=== PATIENT | female | born 1950 | race Caucasian/White ===

== ENCOUNTER → 2017-01-25 | Outpatient (CLI) | payer OTHER ==
[~2017-01-25] MED LIST: ASCO1CAP3 PO; ASPI81TA25 PO; ATOR-24 PO; B-CO1CAP17 PO; CALCTAB5 PO; CITA10TA4 PO; CLOP1TAB5 PO; CYAN10004 PO; LISI-791 PO; LPR25 PO; NXM/40 PO
[2017-01-25 16:38] LABS: BASO % 0.4 %; BASO ABS # 0.04 K/uL (0-0.2); COMPLETE YES; EOS % 3.1 %; HEMATOCRIT 37.5 % (37-47); IG% 0.4 %; LYMPH % 35.2 %; LYMPH ABS # 3.62 K/uL (1.2-3.4); MEAN CELL VOLUME 91.2 fL (80-100); MEAN CORPUSCULAR HEMOGLOBIN 30.9 pg (25-34); MEAN CORPUSCULAR HGB CONC 33.9 g/dl (32-36); MEAN PLATELET VOLUME 9.8 fL (7.4-10.4); MONO % 8.6 %; NEUT % 52.3 %; PLATELET COUNT 329 K/uL (130-400); RED BLOOD COUNT 4.11 M/uL (4.2-5.4); WHITE BLOOD COUNT 10.28 K/uL (4.8-10.8)
[2017-01-25 17:06] LABS: ALT/SGPT 38 U/L (12-78); AST/SGOT 25 U/L (15-37); BLOOD UREA NITROGEN 18 mg/dl (7-18); BUN/CREATININE RATIO 28.7 (10-20); CALCIUM 8.7 mg/dl (8.5-10.1); CARBON DIOXIDE 31 mmol/L (21-32); CHLORIDE 106 mmol/L (98-107); CREATININE 0.62 mg/dl (0.60-1.20); GLUCOSE 92 mg/dl (70-99); POTASSIUM 4.2 mmol/L (3.5-5.1); SODIUM 142 mmol/L (136-145)
[2017-01-25 17:08] LABS: ALB/GLOB RATIO 1.1 (0.9-2); ALKALINE PHOSPHATASE 135 U/L (45-117)
== END | disposition home or self-care (01) ==
LOC: C.LAB1850 15:51
PROVIDERS: ATTEND Internal Medicine
DX: I10 Essential (primary) hypertension (principal); Z11.59 Encounter for screening for other viral diseases

== ENCOUNTER → 2017-01-28 | Outpatient (CLI) | payer OTHER | END | disposition home or self-care (01) | LOC: C.LABSPEC 15:27 | PROVIDERS: ATTEND Internal Medicine | DX: Z00.00 Encounter for general adult medical examination without abnormal findings (principal) ==

== ENCOUNTER → 2017-06-30 | Outpatient (CLI) | payer OTHER ==
[2017-06-30 18:04] LABS: HEMATOCRIT 37.2 % (37-47); MEAN CELL VOLUME 92.3 fL (80-100); MEAN CORPUSCULAR HEMOGLOBIN 30.8 pg (25-34); MEAN CORPUSCULAR HGB CONC 33.3 g/dl (32-36); PLATELET COUNT 298 K/uL (130-400); RED BLOOD COUNT 4.03 M/uL (4.2-5.4); WHITE BLOOD COUNT 11.25 K/uL (4.8-10.8)
[2017-06-30 18:13] LABS: ALT/SGPT 36 U/L (12-78); AST/SGOT 27 U/L (15-37); BLOOD UREA NITROGEN 15 mg/dl (7-18); BUN/CREATININE RATIO 22.8 (10-20); CALCIUM 9.1 mg/dl (8.5-10.1); CARBON DIOXIDE 29 mmol/L (21-32); CHLORIDE 105 mmol/L (98-107); CREATININE 0.67 mg/dl (0.60-1.20); GLUCOSE 122 mg/dl (70-99); MAGNESIUM 1.8 mg/dl (1.8-2.4); SODIUM 141 mmol/L (136-145)
[2017-06-30 18:24] LABS: ALB/GLOB RATIO 1.1 (0.9-2); ALKALINE PHOSPHATASE 123 U/L (45-117); THYROID STIMULATING HORMONE 0.712 uIu/ml (0.300-4.500)
== END | disposition home or self-care (01) ==
LOC: C.LAB1850 16:00
PROVIDERS: ATTEND Physician Assistant
DX: R00.2 Palpitations (principal)

== ENCOUNTER → 2017-08-16 | Outpatient (CLI) | payer OTHER ==
--- NOTE | 2017-08-17 14:32 | MAMMOGRAPHY REPORT ---
BILATERAL DIGITAL SCREENING MAMMOGRAM TOMOSYNTHESIS WITH CAD: 08/16/2017 CLINICAL HISTORY: Routine screening. Patient has no complaints. TECHNIQUE: Breast tomosynthesis in addition to standard 2D mammography was performed. Current study was also evaluated with a Computer Aided Detection (CAD) system. COMPARISON: Comparison is made to exams dated: 08/14/2016 mammogram, 08/12/2015 mammogram, 4 mammogram, 08/08/2013 mammogram - [facility], 08/06/2003 mammogram, and 2 mammogram - [facility]. BREAST COMPOSITION: There are scattered areas of fibroglandular density in both breasts. FINDINGS: No suspicious masses, calcifications, or areas of architectural distortion are noted in ei ther breast. There has been no significant interval change compared to prior exams. Bilateral nodula rity and scattered bilateral benign-appearing calcifications are not significantly changed. IMPRESSION: ACR BI-RADS CATEGORY 2: BENIGN There is no mammographic evidence of malignancy. A 1 year screening mammogram is recommended. The pa tient will receive written notification of the results. Approximately 10% of breast cancers are not detected with mammography. A negative mammographic report should not delay biopsy if a clinically suggestive mass is present. Adali Burks M.D. ah/:08/16/2017 15:34:36 Supply Requirements Officer: Lucy HARRIS)([place]), [facility] letter sent: Normal 1/2 BI-RADS Code: ACR BI-RADS Category 2: Benign
== END | disposition home or self-care (01) ==
LOC: C.MAMM 14:41
PROVIDERS: ATTEND Internal Medicine
DX: Z12.31 Encounter for screening mammogram for malignant neoplasm of breast (principal)

== ENCOUNTER → 2017-09-13 | Outpatient (CLI) | payer OTHER ==
[~2017-09-13] MED LIST changes: +ATOR-26 PO; +CALCTAB7 PO; +CIPR-255 PO; +CLX/20 PO; +LSN20 PO; +METO25TA56 PO; +PANT20TA2 PO; +PLV75 PO; +SACC250C3 PO
[2017-09-13 15:43] LABS: BASO % 0.5 %; BASO ABS # 0.05 K/uL (0-0.2); COMPLETE YES; EOS % 2.9 %; HEMATOCRIT 39.6 % (37-47); IG% 0.3 %; LYMPH % 41.2 %; LYMPH ABS # 4.39 K/uL (1.2-3.4); MEAN CELL VOLUME 91.5 fL (80-100); MEAN CORPUSCULAR HEMOGLOBIN 32.1 pg (25-34); MEAN CORPUSCULAR HGB CONC 35.1 g/dl (32-36); MEAN PLATELET VOLUME 9.9 fL (7.4-10.4); MONO % 7.5 %; NEUT % 47.6 %; PLATELET COUNT 300 K/uL (130-400); RED BLOOD COUNT 4.33 M/uL (4.2-5.4); WHITE BLOOD COUNT 10.65 K/uL (4.8-10.8)
== END | disposition home or self-care (01) ==
LOC: C.LAB1850 14:31
PROVIDERS: ATTEND Internal Medicine
DX: D72.829 Elevated white blood cell count, unspecified (principal)

== ENCOUNTER 2017-09-15 20:20 | Emergency (ER) | payer OTHER ==
[~2017-09-15] VITALS: Ht 152.4 cm; Wt 69.7 kg
[~2017-09-15 20:20] MED LIST changes: -ATOR-26 PO; -CALCTAB7 PO; -CIPR-255 PO; -CLX/20 PO; -LSN20 PO; -METO25TA56 PO; -PANT20TA2 PO; -PLV75 PO; -SACC250C3 PO
[2017-09-15 20:28] VITALS: Ht 152.4 cm; Wt 69.7 kg
[2017-09-15] MEDS ORDERED: SODIUM CHLORIDE 0.9% 1000ML 1,000 ML IV STA (20:42)
[2017-09-15] MEDS ORDERED: KETOROLAC TROMETHAMINE 30 MG/ML VIAL IV STA (20:42)
[2017-09-15] MEDS ORDERED: FENTANYL CITRATE INJ 50 MCG/1 ML 2 ML VIAL IV STA (20:42)
[2017-09-15] MEDS ORDERED: ONDANSETRON INJ 2 MG/ML 2 ML VIAL IV STA (20:42)
--- NOTE | 2017-09-15 20:50 | EMERGENCY ROOM VISIT NOTE ---
History Report prepared by Annalisa: Braxton Arce Under the Supervision of: Dr. Juanjose Pulido M.D. First contact with patient: 20:37 Chief Complaint: HIP PAIN Stated Complaint: LT HIP PAIN History of Present Illness The patient is a 67 year old female who presents to the Emergency Room with complaints of sudden sharp left hip pain that began 2 hours ago. This has never happened to her before. She denies any history of kidney stones. She rates her pain a 9/10 in severity. When her pain began, she began to feel very nauseated and vomited her dinner. She is currently still nauseated. She denies any known urinary symptoms. She notes that she tried a topical analgesic but it did not relieve her pain. her pain does not radiate anywhere. She has a past medical history of a cardiac stent, hypertension, and hyperlipidemia. She denies any fevers, chills, cough, chest pain, shortness of breath, abdominal pain, weakness , or numbness. Source of History: patient Onset: 2 hours ago Position: other (left hip) Symptom Intensity: 9/10 Quality: sharp Timing: other (sudden onset) Associated Symptoms: + nausea, + vomiting, No fevers, No chills, No chest pain, No SOB, No abdominal pain, No urinary symptoms, No weakness, No numbness Review of Systems See HPI for pertinent positives and negatives. A total of ten systems were reviewed and were otherwise negative. Past Medical & Surgical Medical Problems: (1) Cardiovascular stress testing Family History Diabetes mellitus FH: cancer FH: heart disease Hypertension Social History Smoking Status: Never Smoker Marital Status: Occupation Status: unemployed Current/Historical Medications Scheduled Ascorbic Acid (Vitamin C), 500 MG PO DAILY Aspirin (Aspir-Low), 81 MG PO QAM Atorvastatin (Lipitor), 80 MG PO DAILY Calcium Carbonate-Vitamin D W/ (Caltrate 600 Plus), 1 TAB PO DAILY Ciprofloxacin Hcl (Cipro), 500 MG PO BID Citalopram (Citalopram Hydrobromide), 20 MG PO DAILY Clopidogrel Bisulfate (Clopidogrel), 75 MG PO DAILY Cyanocobalamin (Vitamin B-12 1000 Mcg), 1,000 MCG PO DAILY Lisinopril (Lisinopril), 20 MG PO BID Metoprolol Tartrate (Lopressor) (Lopressor), 25 MG PO BID Pantoprazole Sodium (Protonix), 20 MG PO Q2D Saccharomyces Boulardii (Florastor), 1 CAP PO BID Vitamin B Cmplx/Vitc/Folic Ac (Nephrocaps), 1 CAP PO QAM Allergies Coded Allergies: No Known Allergies (Unverified , 08/20/15) Physical Exam Vital Signs Date Time Temp Pulse Resp B/P (MAP) Pulse Ox O2 Delivery O2 Flow Rate FiO2 09/15/17 22:57 36.3 68 18 138/55 99 09/15/17 20:28 36.3 60 18 157/85 98 Room Air Physical Exam GENERAL: Awake, alert, uncomfortable-appearing, in no distress HENT: Normocephalic, atraumatic. Oropharynx unremarkable. EYES: Normal conjunctiva. Sclera non-icteric. NECK: Supple. No nuchal rigidity. FROM. No JVD. RESPIRATORY: Clear to auscultation. CARDIAC: Regular rate, normal rhythm. Extremities warm and well perfused. Pulses equal. ABDOMEN: Soft, non-distended. No tenderness to palpation. No rebound or guarding. No masses. RECTAL: Deferred. MUSCULOSKELETAL: Chest examination reveals no tenderness. The back is symmetrical on inspection without obvious abnormality. Mild left CVA and left flank tenderness. No peritoneal signs. No joint edema. LOWER EXTREMITIES: Calves are equal size bilaterally and non-tender. No edema. No discoloration. NEURO: Normal sensorium. No sensory or motor deficits noted. SKIN: No rash or jaundice noted. Medical Decision & Procedures ER Provider Diagnostic Interpretation: Radiology results as stated below per my review and radiologist interpretation: ABD/PELVIS IV CONTRAST ONLY CLINICAL HISTORY: 67 years-old Female presenting with LEFT FLANK PAIN. TECHNIQUE: Multidetector CT of the abdomen and pelvis was performed after the administration of intravenous contrast. IV contrast: None. A dose lowering technique was used consistent with the principles of ALARA (as low as reasonably achievable). COMPARISON: None. CT DOSE (mGy.cm): The estimated cumulative dose is 505.54 mGy.cm. FINDINGS: Quality Control Director topogram: Unremarkable. Lung bases: Minimal basilar opacities. No pleural effusion or pneumothorax. Coronary artery calcification. Normal heart size. No pericardial or pleural effusion. Liver: Normal morphology. No liver lesion. Patent hepatic vasculature. Biliary: Mild intrahepatic bladder ductal dilatation in segments 8 suggested without an obstructing central mass apparent. No extrahepatic biliary ductal dilatation. Gallbladder decompressed. Pancreas: Mild parenchymal atrophy. Spleen: Normal. Adrenal glands: Normal. Kidneys and ureters: Normal. No hydronephrosis. Bladder: Normal. Pelvic organs: Uterus surgically absent. No adnexal masses. Bowel: Normal. No bowel obstruction. Peritoneal cavity: No free fluid or intraperitoneal gas. Lymph nodes: No enlarged lymph nodes in the abdomen or pelvis. Vasculature: Atherosclerosis of the normal caliber abdominal aorta. IVC patent. Abdominal wall: Normal. Musculoskeletal: Normal. IMPRESSION: 1. No acute intra-abdominal pathology. Electronically signed by: Jung Gonzalez M.D. 09/15/2017 10:11 PM Dictated Date/Time: 09/15/2017 10:06 PM Laboratory Results 09/15/17 21:06 Red Blood Count 4.13, Mean Corpuscular Volume 90.1, Mean Corpuscular Hemoglobin 32.0, Mean Corpuscular Hemoglobin Concent 35.5, Mean Platelet Volume 9.7, Neutrophils (%) (Auto) 70.8, Lymphocytes (%) (Auto) 19.8, Monocytes (%) (Auto) 6.8, Eosinophils (%) (Auto) 1.9, Basophils (%) (Auto) 0.5, Neutrophils # (Auto) 9.92, Lymphocytes # (Auto) 2.78, Monocytes # (Auto) 0.95, Eosinophils # (Auto) 0.26, Basophils # (Auto) 0.07 09/15/17 21:06 Test 09/15/17 21:06 09/15/17 21:13 White Blood Count 14.01 K/uL (4.8-10.8) Red Blood Count 4.13 M/uL (4.2-5.4) Hemoglobin 13.2 g/dL (12.0-16.0) Hematocrit 37.2 % (37-47) Mean Corpuscular Volume 90.1 fL (80-100) Mean Corpuscular Hemoglobin 32.0 pg (25-34) Mean Corpuscular Hemoglobin Concent 35.5 g/dl (32-36) Platelet Count 281 K/uL (130-400) Mean Platelet Volume 9.7 fL (7.4-10.4) Neutrophils (%) (Auto) 70.8 % Lymphocytes (%) (Auto) 19.8 % Monocytes (%) (Auto) 6.8 % Eosinophils (%) (Auto) 1.9 % Basophils (%) (Auto) 0.5 % Neutrophils # (Auto) 9.92 K/uL (1.4-6.5) Lymphocytes # (Auto) 2.78 K/uL (1.2-3.4) Monocytes # (Auto) 0.95 K/uL (0.11-0.59) Eosinophils # (Auto) 0.26 K/uL (0-0.5) Basophils # (Auto) 0.07 K/uL (0-0.2) RDW Standard Deviation 40.8 fL (36.4-46.3) RDW Coefficient of Variation 12.5 % (11.5-14.5) Immature Granulocyte % (Auto) 0.2 % Immature Granulocyte # (Auto) 0.03 K/uL (0.00-0.02) Anion Gap 4.0 mmol/L (3-11) Est Creatinine Clear Calc Drug Dose 62.6 ml/min Estimated GFR () 94.1 Estimated GFR (Non- 81.2 BUN/Creatinine Ratio 25.8 (10-20) Calcium Level 9.2 mg/dl (8.5-10.1) Total Bilirubin 0.5 mg/dl (0.2-1) Direct Bilirubin 0.1 mg/dl (0-0.2) Aspartate Amino Transf (AST/SGOT) 26 U/L (15-37) Alanine Aminotransferase (ALT/SGPT) 31 U/L (12-78) Alkaline Phosphatase 122 U/L (45-117) Total Protein 7.2 gm/dl (6.4-8.2) Albumin 3.9 gm/dl (3.4-5.0) Lipase 98 U/L (73-393) Urine Color YELLOW Urine Appearance TURBID (CLEAR) Urine pH >= 9.0 (4.5-7.5) Urine Specific [place] 1.020 (1.000-1.030) Urine Protein NEG (NEG) Urine Glucose (UA) NEG (NEG) Urine Ketones NEG (NEG) Urine Occult Blood NEG (NEG) Urine Nitrite NEG (NEG) Urine Bilirubin NEG (NEG) Urine Urobilinogen NEG (NEG) Urine Leukocyte Esterase SMALL (NEG) Urine WBC (Auto) 5-10 /hpf (0-5) Urine RBC (Auto) 0-4 /hpf (0-4) Urine Hyaline Casts (Auto) 5-10 /lpf (0-5) Urine Epithelial Cells (Auto) >30 /lpf (0-5) Urine Bacteria (Auto) NEG (NEG) Urine Renal Epithelial Cells /lpf (0-5) Urine Crystals AMORPHOUS SEDIMENT (NONE Laboratory results reviewed by me Medications Administered Medications (Trade) Dose Ordered Sig/Jasvir Route Start Time Stop Time Status Last Admin Dose Admin Sodium Chloride 1,000 ml @ 999 mls/hr Q1H1M STAT IV 09/15/17 20:42 09/15/17 21:42 DC 09/15/17 21:16 999 MLS/HR Ketorolac Tromethamine (Toradol Inj) 15 mg NOW STAT IV 09/15/17 20:42 09/15/17 20:47 DC 09/15/17 21:16 15 MG Ondansetron HCl (Zofran Inj) 4 mg NOW STAT IV 09/15/17 20:42 09/15/17 20:47 DC 09/15/17 21:15 4 MG Fentanyl Citrate (Fentanyl Inj) 50 mcg NOW STAT IV 09/15/17 20:42 09/15/17 20:47 DC 09/15/17 21:16 50 MCG Ciprofloxacin (Cipro Tab) 500 mg NOW STAT PO 09/15/17 22:39 09/15/17 22:43 DC 09/15/17 22:53 500 MG ED Course 2036: The patient was evaluated in room B4. A complete history and physical exam was performed. 2249: I reevaluated the patient. Discussed results and discharge instructions: She verbalized understanding and agreement. The patient is ready for discharge. Medical Decision I reviewed the patient's past medical history, medications, and the nursing notes as described above. Differential diagnosis includes but is not limited to: ureteral stone, UTI, pyelonephritis, lumbosacral radiculopathy or strain. The patient is a 67 y/o woman with presents to the ED with acute onset left flank pain per HPI. On arrival the patient is uncomfortable but in NAD. AFVSS. Mild left CVA/flank ttp. UA+ for UTI. Patient reports frequency but no dysuria. WBC elevated to 14. Labs otherwise unremarkable. CT negative for ureteral stone or acute findings otherwise. Will treat for pyelo given patient's flank pain. Patient feeling improved after IVF hydration and analgesia. Findings and plan for follow-up reviewed with patient. Patient agreeable and d/c'd per discharge instructions. Medication Reconcilliation Current Medication List: was personally reviewed by me Blood Pressure Screening Patient's blood pressure: Elevated blood pressure Blood pressure disposition: Elevated BP felt to be situational Impression Primary Impression: Pyelonephritis Scribe Attestation The scribe's documentation has been prepared under my direction and personally reviewed by me in its entirety. I confirm that the note above accurately reflects all work, treatment, procedures, and medical decision making performed by me. Departure Information Dispostion Home / Self-Care Prescriptions Saccharomyces Boulardii (Florastor) 250 Mg Cap 1 CAP PO BID for 10 Days, #20 CAP Prov: Juanjose Pulido M.D. 09/15/17 Ciprofloxacin Hcl (CIPRO) 500 Mg Tab 500 MG PO BID, #14 TAB Prov: Juanjose Pulido M.D. 09/15/17 Referrals RV. Crook MD (PCP) Forms HOME CARE DOCUMENTATION FORM, IMPORTANT VISIT INFORMATION, WORK / SCHOOL INSTRUCTIONS Patient Instructions ED UTI Cystitis Female, My [facility], Pyelonephritis Dc Additional Instructions Please follow up with your primary care physician in the next 1-3 days for re- evaluation. You likely have urinary tract infection that may involve your kidney. Otherwise, your exam, CT scan, and lab results did not show signs of an emergent condition at this time. Ciprofloxacin as directed. Florastor, probiotic, to help minimize risk of antibiotic associated diarrhea. Acetaminophen or ibuprofen for pain as needed. Return to the emergency department for worsening symptoms as described in the accompanying instructions.
[2017-09-15] MEDS ORDERED: LSN20 PO (20:53)
[2017-09-15] MEDS ORDERED: ATOR-26 PO (20:53)
[2017-09-15] MEDS ORDERED: PANT20TA2 PO (20:53)
[2017-09-15] MEDS ORDERED: CALCTAB7 PO (20:53)
[2017-09-15] MEDS ORDERED: CLX/20 PO (20:53)
[2017-09-15] MEDS ORDERED: PLV75 PO (20:53)
[2017-09-15] MEDS ORDERED: METO25TA56 PO (20:53)
[2017-09-15] MEDS ORDERED: OPTIRAY 320 IV PRN (21:00)
[2017-09-15 21:19] LABS: BASO % 0.5 %; BASO ABS # 0.07 K/uL (0-0.2); COMPLETE YES; EOS % 1.9 %; HEMATOCRIT 37.2 % (37-47); IG% 0.2 %; LYMPH % 19.8 %; LYMPH ABS # 2.78 K/uL (1.2-3.4); MEAN CELL VOLUME 90.1 fL (80-100); MEAN CORPUSCULAR HGB CONC 35.5 g/dl (32-36); MEAN PLATELET VOLUME 9.7 fL (7.4-10.4); MONO % 6.8 %; NEUT % 70.8 %; PLATELET COUNT 281 K/uL (130-400); RED BLOOD COUNT 4.13 M/uL (4.2-5.4); WHITE BLOOD COUNT 14.01 K/uL (4.8-10.8)
[2017-09-15 21:38] LABS: URINE APPEARANCE TURBID (CLEAR); URINE BILIRUBIN NEG (NEG); URINE COLOR YELLOW; URINE EPITHELIAL CELL AUTO >30 /lpf (0-5); URINE NITRITE NEG (NEG); URINE PH >= 9.0 (4.5-7.5); UROBILINOGEN NEG (NEG); ZZUR CULT IF INDIC CLEAN CATCH NO
[2017-09-15 21:38] LABS: BUN/CREATININE RATIO 25.8 (10-20); CALCIUM 9.2 mg/dl (8.5-10.1); CREATININE 0.76 mg/dl (0.60-1.20); POTASSIUM 3.6 mmol/L (3.5-5.1)
[2017-09-15 21:54] LABS: MANUAL MICROSCOPIC REQUIRED? NO; REVIEW REQ? YES
--- NOTE | 2017-09-15 22:13 | DIAGNOSTIC IMAGING REPORT ---
ABD/PELVIS IV CONTRAST ONLY CLINICAL HISTORY: 67 years-old Female presenting with LEFT FLANK PAIN. TECHNIQUE: Multidetector CT of the abdomen and pelvis was performed after the administration of intravenous contrast. IV contrast: None. A dose lowering technique was used consistent with the principles of ALARA (as low as reasonably achievable). COMPARISON: None. CT DOSE (mGy.cm): The estimated cumulative dose is 505.54 mGy.cm. FINDINGS: Pantry Chef topogram: Unremarkable. Lung bases: Minimal basilar opacities. No pleural effusion or pneumothorax. Coronary artery calcification. Normal heart size. No pericardial or pleural effusion. Liver: Normal morphology. No liver lesion. Patent hepatic vasculature. Biliary: Mild intrahepatic bladder ductal dilatation in segments 8 suggested without an obstructing central mass apparent. No extrahepatic biliary ductal dilatation. Gallbladder decompressed. Pancreas: Mild parenchymal atrophy. Spleen: Normal. Adrenal glands: Normal. Kidneys and ureters: Normal. No hydronephrosis. Bladder: Normal. Pelvic organs: Uterus surgically absent. No adnexal masses. Bowel: Normal. No bowel obstruction. Peritoneal cavity: No free fluid or intraperitoneal gas. Lymph nodes: No enlarged lymph nodes in the abdomen or pelvis. Vasculature: Atherosclerosis of the normal caliber abdominal aorta. IVC patent. Abdominal wall: Normal. Musculoskeletal: Normal. IMPRESSION: 1. No acute intra-abdominal pathology. Electronically signed by: Jung Gonzalez M.D. 09/15/2017 10:11 PM Dictated Date/Time: 09/15/2017 10:06 PM
[2017-09-15] MEDS ORDERED: CIPROFLOXACIN 500 MG TAB PO STA (22:39)
[2017-09-15] MEDS ORDERED: CIPR-255 PO (22:44)
[2017-09-15] MEDS ORDERED: SACC250C3 PO (22:44)
[2017-09-15 22:57] VITALS: BP 138/55; PULSE 68; TEMP 36.3; O2SAT 99
== END 2017-09-15 22:59 | disposition home or self-care (01) ==
LOC: C.EDB 20:21
DX: N12 Tubulo-interstitial nephritis, not specified as acute or chronic (principal); I10 Essential (primary) hypertension; E78.5 Hyperlipidemia, unspecified; Z95.5 Presence of coronary angioplasty implant and graft; Z79.82 Long term (current) use of aspirin; Z83.3 Family history of diabetes mellitus; Z82.49 Family history of ischemic heart disease and other diseases of the circulatory system

== ENCOUNTER 2017-10-07 06:22 | Day surgery (SDC) | payer OTHER ==
[~2017-10-07] VITALS: Ht 162.6 cm; Wt 63.5 kg
[~2017-10-07 06:22] MED LIST changes: -ATOR-24 PO; +ATOR-26 PO; -CALCTAB5 PO; +CALCTAB7 PO; +CIPR-255 PO; -CITA10TA4 PO; -CLOP1TAB5 PO; +CLX/20 PO; -LISI-791 PO; -LPR25 PO; +LSN20 PO; +METO25TA56 PO; -NXM/40 PO; +PANT20TA2 PO; +PLV75 PO
[2017-10-07 06:46] VITALS: Ht 162.6 cm; Wt 63.5 kg
[2017-10-07 06:50] VITALS: BP 152/98; PULSE 57; TEMP 36.7; O2SAT 98
[2017-10-07] MEDS ORDERED: CEFAZOLIN SOD 2000MG/10 ML IV PUSH IV ONE (07:07)
--- NOTE | 2017-10-07 07:53 | History & Physical Bridge Note ---
H&P Re-Evaluation Bridge Note: I have examined the patient, reviewed the History & Physical and in the interval since the performance of the History & Physical I have noted the following changes of clinical significance: No changes noted. I discussed the indications, procedure, risks and alternatives of loop recorder implantation with her and her and they understand and she agrees to proceed. Consent obtained. I discussed options of sedation with her and she prefers no sedation.
[2017-10-07] MEDS ORDERED: LIDOCAINE HCL 1% 20 ML VIAL ONE (08:01)
[2017-10-07] MEDS ORDERED: BACITRACIN OINT 0.9 GM PKT ONE (08:18)
[2017-10-07 08:20] VITALS: BP 139/61; PULSE 51; TEMP 36.7; O2SAT 95
--- NOTE | 2017-10-07 08:24 | [facility] Operative Report ---
Operative Report Operative Date Oct 07, 2017. Pre-Operative Diagnosis Palpitations, tachycardia Post-Operative Diagnosis same Procedure(s) Performed Loop recorder implantation Surgeon Dr. Early Equipment Service Associate Surgeon(s) none Estimated Blood Loss 2 cc Findings Good position Specimens None Anesthesia local, no sedation Complication(s) None Disposition MTU Description of Procedure After obtaining informed consent for the procedure, the patient was brought to the laboratory having had nothing by mouth after midnight. The patient was prepped and draped in the standard sterile manner for a loop recorder implantation. An area at the fourth left intercostal space and 1 cm left of the left sternal border was infiltrated with 1% lidocaine local anesthetic and a 0.5 cm incision was made through the skin. Using the loop recorder insertion tool the loop recorder was inserted through the incision at a 45 downward and leftward angle. The incision was closed with a subcutaneous continuous closure of 4-0 Vicryl followed by a running subcuticular skin closure of 4-0 Vicryl. Steri- Strips were applied and bacitracin ointment was placed on the incision. A dressing was applied. I attest to the content of the Intraoperative Record and any orders documented therein. Any exceptions are noted below.
[2017-10-07] MEDS ORDERED: ACETAMINOPHEN 325 MG TAB PO PRN (08:30)
--- NOTE | 2017-10-07 08:31 | Discharge Instructions ---
Discharge Instructions Date of Service Oct 07, 2017. Admission Reason for Admission: Palpitations Discharge Discharge Diagnosis / Problem: Loop recorder implantation Discharge Goals Goal(s): Diagnostic testing Activity Recommendations Activity Limitations: resume your previous activity . Instructions / Follow-Up Instructions / Follow-Up ACTIVITY RECOMMENDATIONS: * Do not raise affected arm over head for 2 weeks. SPECIAL CARE INSTRUCTIONS: * If bleeding occurs, apply direct pressure to area for 5 minutes. * Call your doctor if you have severe pain, fever, drainage or bleeding at site. * Keep dressing on and dry. * Keep any scheduled doctor's appointment. * Implant Card - hand held device with website information given. SKIN IRRITATION: * You may experience some redness and/or swelling in the area where radiation was administered. If any skin irritation occurs, please contact your family physician. FOLLOW UP VISIT: Dr. Early 10/08/2017 10:30 AM Current Hospital Diet Patient's current hospital diet: AHA Diet (Heart Healthy) Discharge Diet Recommended Diet: AHA Diet (Heart Healthy) Pending Studies Studies pending at discharge: no Medical Emergencies . Who to Call and When: Medical Emergencies: If at any time you feel your situation is an emergency, please call 911 immediately. . Non-Emergent Contact Non-Emergency issues call your: Primary Care Provider . . "Provider Documentation" section prepared by Eliazar Early. . VTE Core Measure Inpt VTE Proph given/why not?: Treatment not indicated
[2017-10-07 09:04] VITALS: BP 133/56; PULSE 50; TEMP 36.7; O2SAT 95
== END 2017-10-07 09:05 | disposition home or self-care (01) ==
LOC: C.ACU 06:22
PROVIDERS: ATTEND Internal Medicine Cardiovascular Disease
DX: R00.2 Palpitations (principal); R00.0 Tachycardia, unspecified

== ENCOUNTER 2017-11-27 23:27 | Observation (INO) | payer OTHER ==
[~2017-11-27] VITALS: Ht 152.4 cm; Wt 66.3 kg
[~2017-11-27 23:27] MED LIST changes: -ASCO1CAP3 PO; -B-CO1CAP17 PO; -CIPR-255 PO
[2017-11-28] VITALS (11 sets, daily range): BP systolic 152–191; BP diastolic 62–93; PULSE 50–58; TEMP 36.4–36.9; O2SAT 92–96; Ht 152.4 cm; Wt 66.3 kg
[2017-11-28 00:06] LABS: BASO % 0.5 %; BASO ABS # 0.04 K/uL (0-0.2); EOS % 3.7 %; EOS ABS # 0.29 K/uL (0-0.5); HEMATOCRIT 35.8 % (37-47); HEMOGLOBIN 12.9 g/dL (12.0-16.0); IG# 0.02 K/uL (0.00-0.02); LYMPH % 25.1 %; LYMPH ABS # 1.98 K/uL (1.2-3.4); MEAN CELL VOLUME 88.2 fL (80-100); MEAN CORPUSCULAR HEMOGLOBIN 31.8 pg (25-34); MEAN PLATELET VOLUME 9.7 fL (7.4-10.4); MONO ABS # 0.55 K/uL (0.11-0.59); NEUT % 63.4 %; NEUT ABS # 5.02 K/uL (1.4-6.5); PLATELET COUNT 202 K/uL (130-400); RED CELL DISTRIBUTION WIDTH SD 42.2 fL (36.4-46.3)
[2017-11-28 00:29] LABS: ALBUMIN 3.2 gm/dl (3.4-5.0); ALT/SGPT 30 U/L (12-78); AST/SGOT 31 U/L (15-37); BLOOD UREA NITROGEN 13 mg/dl (7-18); CALCIUM 8.2 mg/dl (8.5-10.1); CARBON DIOXIDE 26 mmol/L (21-32); CREATININE 0.62 mg/dl (0.60-1.20); GLUCOSE 117 mg/dl (70-99); LIPASE 111 U/L (73-393); POTASSIUM 3.3 mmol/L (3.5-5.1); SODIUM 139 mmol/L (136-145)
[2017-11-28 00:34] LABS: ALKALINE PHOSPHATASE 110 U/L (45-117)
[2017-11-28] MEDS ORDERED: POTASSIUM CHLORIDE 10 MEQ TABCR PO STA (00:35)
--- NOTE | 2017-11-28 01:13 | History and Physical ---
History & Physical Date & Time of Service: Nov 28, 2017 at 01:07 Chief Complaint: Severe Chest Pain, Nausea- Cardiac Hx Primary Care Physician: RV. Crook MD History of Present Illness Source: patient, hospital records 67 y/o F Hx HTN, HPL, GERD, possible AF (loop recorder 10/14), CAD - PA/LAD stent 2012. Pt presents with L CP radiating into L arm, accompanied by diaphoresis and SOB. Denies N/V, lightheadedness. Initial EKG and troponin do not support acute ischemia. Past Medical/Surgical History 1) HTN 2) HPL 3) CAD - PA and LAD stent 2012 4) GERD 5) She had a loop recorder placed 10/14 for suspected AF 6) Depression Family History Diabetes mellitus FH: cancer FH: heart disease Hypertension Social History Smoking Status: Never Smoker Marital Status: Occupational Status: unemployed Immunizations History of Influenza Vaccine: Unknown Influenza Vaccine Date: May 30, 2012 History of Tetanus Vaccine?: Unknown Tetanus Immunization Date: May 30, 2011 History of Pneumococcal: Unknown Pneumococcal Date: Jun 29, 2011 History of Hepatitis B Vaccine: Unknown Allergies Coded Allergies: No Known Allergies (Unverified , 10/07/17) Home Medications Scheduled Aspirin (Aspir-Low), 81 MG PO QAM Atorvastatin (Lipitor), 80 MG PO DAILY Calcium Carbonate-Vitamin D W/ (Caltrate 600 Plus), 1 TAB PO DAILY Citalopram (Citalopram Hydrobromide), 20 MG PO DAILY Clopidogrel Bisulfate (Clopidogrel), 75 MG PO DAILY Cyanocobalamin (Vitamin B-12 1000 Mcg), 1,000 MCG PO DAILY Lisinopril (Lisinopril), 20 MG PO BID Metoprolol Tartrate (Lopressor) (Lopressor), 25 MG PO BID Pantoprazole Sodium (Protonix), 20 MG PO Q2D Review of Systems Constitutional: + sweats, No fever, No chills Eyes: No worsening of vision ENT: No hearing loss, No unusual epistaxis, No nasal symptoms Respiratory: + shortness of breath, No cough, No sputum, No wheezing Cardiovascular: No chest pain Abdomen: No pain, No nausea, No vomiting Musculoskeletal: No joint pain Genitourinary - Female: No dysuria Neurologic: No memory loss, No paralysis, No weakness Psychiatric: No depression symptoms Hematologic / Lymphatic: No abnormal bleeding/bruising Integumentary: No rash Allergic / Immunologic: No environmental allergies Physical Exam Vital Signs Date Time Temp Pulse Resp B/P (MAP) Pulse Ox O2 Delivery O2 Flow Rate FiO2 11/28/17 00:58 36.5 50 20 164/89 96 Room Air 11/28/17 00:08 51 11/28/17 00:07 Room Air 11/28/17 00:05 94 Room Air 11/28/17 00:02 Room Air 11/27/17 23:37 54 20 189/88 96 Room Air General Appearance: WD/WN, no apparent distress Head: normocephalic Eyes: normal inspection ENT: normal ENT inspection, pharynx normal Neck: supple, no JVD Respiratory/Chest: chest non-tender, lungs clear, normal breath sounds Cardiovascular: regular rate, rhythm, no edema, no gallop Abdomen/GI: normal bowel sounds, non tender, soft Back: normal inspection, no CVA tenderness Extremities/Musculoskelatal: normal inspection, no calf tenderness, normal capillary refill Neurologic/Psych: hone operator II-XII nml as tested, no motor/sensory deficits, alert, oriented x 3 Skin: normal color Diagnostics Laboratory Results Results Past 24 Hours Test 11/27/17 23:57 11/28/17 00:02 Range/Units White Blood Count 7.90 4.8-10.8 K/uL Red Blood Count 4.06 4.2-5.4 M/uL Hemoglobin 12.9 12.0-16.0 g/dL Hematocrit 35.8 37-47 % Mean Corpuscular Volume 88.2 80-100 fL Mean Corpuscular Hemoglobin 31.8 25-34 pg Mean Corpuscular Hemoglobin Concent 36.0 32-36 g/dl Platelet Count 202 130-400 K/uL Mean Platelet Volume 9.7 7.4-10.4 fL Neutrophils (%) (Auto) 63.4 % Lymphocytes (%) (Auto) 25.1 % Monocytes (%) (Auto) 7.0 % Eosinophils (%) (Auto) 3.7 % Basophils (%) (Auto) 0.5 % Neutrophils # (Auto) 5.02 1.4-6.5 K/uL Lymphocytes # (Auto) 1.98 1.2-3.4 K/uL Monocytes # (Auto) 0.55 0.11-0.59 K/uL Eosinophils # (Auto) 0.29 0-0.5 K/uL Basophils # (Auto) 0.04 0-0.2 K/uL RDW Standard Deviation 42.2 36.4-46.3 fL RDW Coefficient of Variation 13.0 11.5-14.5 % Immature Granulocyte % (Auto) 0.3 % Immature Granulocyte # (Auto) 0.02 0.00-0.02 K/uL Sodium Level 139 136-145 mmol/L Potassium Level 3.3 3.5-5.1 mmol/L Chloride Level 104 98-107 mmol/L Carbon Dioxide Level 26 21-32 mmol/L Anion Gap 9.0 3-11 mmol/L Blood Urea Nitrogen 13 7-18 mg/dl Creatinine 0.62 0.60-1.20 mg/dl Est Creatinine Clear Calc Drug Dose 74.8 ml/min Estimated GFR () 108.1 Estimated GFR (Non- 93.3 BUN/Creatinine Ratio 20.6 10-20 Random Glucose 117 70-99 mg/dl Calcium Level 8.2 8.5-10.1 mg/dl Total Bilirubin 0.4 0.2-1 mg/dl Direct Bilirubin 0.1 0-0.2 mg/dl Aspartate Amino Transf (AST/SGOT) 31 15-37 U/L Alanine Aminotransferase (ALT/SGPT) 30 12-78 U/L Alkaline Phosphatase 110 45-117 U/L Troponin I < 0.015 0-0.045 ng/ml Total Protein 7.0 6.4-8.2 gm/dl Albumin 3.2 3.4-5.0 gm/dl Lipase 111 73-393 U/L Bedside Troponin I < 0.030 0-0.045 ng/ml Normal EKG Impression Assessment and Plan 67 y/o F Hx HTN, HPL, GERD, possible AF (loop recorder 10/14), CAD - PA/LAD stent 2012. Pt presents with L CP radiating into L arm, accompanied by diaphoresis and SOB. Denies N/V, lightheadedness. Initial EKG and troponin do not support acute ischemia. 1) CP/CAD - Serial troponins, monitor on telemetry, ASA, Plavix, Statin, B- mary beth, NTG/Morphine PRN. 2) HTN - cont 3) HPL - cont Statin 4) GERD - cont PPi 5) Loop recorder in place for palpitations/suspected AF - sinus rhythm on admission Full code - Heparin prophylaxis Total time for this admit including review of labs, meds, imaging, records - discussion with pt and ER attending - 35 min Resuscitation Status VTE Prophylaxis Will order VTE Prophylaxis: Yes
[2017-11-28] MEDS ORDERED: ZOLPIDEM TARTRATE 5 MG TAB PO PRN (01:15)
[2017-11-28] MEDS ORDERED: ONDANSETRON INJ 2 MG/ML 2 ML VIAL IV PRN (01:15)
[2017-11-28] MEDS ORDERED: NITROGLYCERIN 0.4 MG SL PER TAB CHARGE SL PRN (01:15)
[2017-11-28] MEDS ORDERED: MAGNESIUM HYDROXIDE SUSP 30 ML UDC PO PRN (01:15)
[2017-11-28] MEDS ORDERED: POLYETHYLENE (MIRALAX) 17 GM PACK PO PRN (01:15)
[2017-11-28] MEDS ORDERED: ALUMINUM/MAGNESIUM/SIMETH (MAALOX MAX) 30 ML UDC PO PRN (01:15)
[2017-11-28] MEDS: MoRPHine SULFATE 2 MG/ML CARP IV PRN ×2 (01:27→10:27)
[2017-11-28] MEDS ORDERED: ASCORBIC ACID PO (01:38)
[2017-11-28] MEDS ORDERED: ZINC1TAB4 PO (01:39)
[2017-11-28] MEDS ORDERED: IV FLUIDS COMPLETED PRN (03:00)
[2017-11-28] MEDS ORDERED: MAGNESIUM OXIDE 400 MG TAB PO ONE (03:15)
[2017-11-28] MEDS ORDERED: D5NSS + 20MEQ KCL 1,000 ML IV SCH (03:15)
--- NOTE | 2017-11-28 03:23 | EMERGENCY ROOM VISIT NOTE ---
History First contact with patient: 23:37 Chief Complaint: CHEST PAIN Stated Complaint: CHEST PAIN Nursing Triage Summary: Pt states cp started @ 2230 with diaphoresis and numbness of bilateral hands and fingers. Pain was initially 8/10 and is now down to 2/10 and numbness has subsided. Pt has loop recorder. History of Present Illness The patient is a 67 year old female who presents to the Emergency Room with complaints of chest pressure with diaphoresis and nausea vomiting for the past hour he took 3 hole aspirins. 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 Gama. She had a stent placed in 2012. Symptoms were similar. Patient was sitting with symptoms started. Patient states she feels much better now. She no longer has any chest discomfort. Patient denies fevers, cough, congestion, radiating pain, abdominal pain, diarrhea, urinary symptoms, leg pain or swelling. Review of Systems An 10 system review of systems was completed with positives and pertinent negatives listed in the HPI. Past Medical/Surgical History Medical Problems: (1) Cardiovascular stress testing (2) Chest pain Coronary artery disease, hyperlipidemia, palpitations migraine, osteopenia, hysterectomy, tonsillectomy, carpal tunnel Family History Diabetes mellitus FH: cancer FH: heart disease Hypertension Social History Smoking Status: Never Smoker Smokeless Tobacco Use: No Drug Use: none Marital Status: Housing Status: lives with family Occupation Status: unemployed Current/Historical Medications Scheduled Aspirin (Aspir-Low), 81 MG PO QAM Atorvastatin (Lipitor), 80 MG PO DAILY Calcium Carbonate-Vitamin D W/ (Caltrate 600 Plus), 1 TAB PO DAILY Citalopram (Citalopram Hydrobromide), 20 MG PO DAILY Clopidogrel Bisulfate (Clopidogrel), 75 MG PO DAILY Cyanocobalamin (Vitamin B-12 1000 Mcg), 1,000 MCG PO DAILY Lisinopril (Lisinopril), 20 MG PO BID Metoprolol Tartrate (Lopressor) (Lopressor), 25 MG PO BID Pantoprazole Sodium (Protonix), 20 MG PO Q2D Zinc Gluconate (Zinc), Unknown Dose PO BID [Ascorbic Acid ], 600 MG PO BID Physical Exam Vital Signs Date Time Temp Pulse Resp B/P (MAP) Pulse Ox O2 Delivery O2 Flow Rate FiO2 11/28/17 00:58 36.5 50 20 164/89 96 Room Air 11/28/17 00:08 51 11/28/17 00:07 Room Air 11/28/17 00:05 94 Room Air 11/28/17 00:02 Room Air 11/27/17 23:37 54 20 189/88 96 Room Air Physical Exam VITALS: Vitals are noted on the nurse's note and reviewed by myself. Vital signs stable. GENERAL: Pleasant male, in no acute distress, nondiaphoretic, well-developed well-nourished. SKIN: The skin was without rashes, erythema, edema, or bruising. There is no tenting of the skin. Capillary reflex less than 2 seconds. HEAD: Normocephalic atraumatic. EARS: External auditory canals clear EYES: Pupils equal round and reactive to light and accommodation. Conjunctivae without injection, sclerae without icterus. Extraocular movements intact. NOSE: Patent, turbinates without inflammation or discharge. No sinus tenderness. MOUTH: Mucous membranes moist. Pharynx without erythema or exudate. Uvula midline. Airway patent. Tongue does not deviate. NECK: Supple without nuchal rigidity. No lymphadenopathy. No thyromegaly. Cervical spine is nontender. No JVD. HEART: Regular rate and rhythm, chest nontender to palpation LUNGS: Clear to auscultation bilaterally without wheezes, rales or rhonchi. No retractions or accessory muscle use. ABDOMEN: Positive bowel sounds x 4. Normal tympanic percussion. Soft, nontender, without masses or organomegaly. Yao sign negative. No guarding or rebound tenderness. No CVA tenderness MUSCULOSKELETAL: No muscle atrophy, erythema, or edema noted. NEURO: Patient was alert and oriented to person place and time. Normal sensation to light and sharp touch. No focal neurological deficits. Medical Decision & Procedures Laboratory Results 11/27/17 23:57 Red Blood Count 4.06, Mean Corpuscular Volume 88.2, Mean Corpuscular Hemoglobin 31.8, Mean Corpuscular Hemoglobin Concent 36.0, Mean Platelet Volume 9.7, Neutrophils (%) (Auto) 63.4, Lymphocytes (%) (Auto) 25.1, Monocytes (%) (Auto) 7.0, Eosinophils (%) (Auto) 3.7, Basophils (%) (Auto) 0.5, Neutrophils # (Auto) 5.02, Lymphocytes # (Auto) 1.98, Monocytes # (Auto) 0.55, Eosinophils # (Auto) 0.29, Basophils # (Auto) 0.04 11/27/17 23:57 Test 11/27/17 23:57 11/28/17 00:02 White Blood Count 7.90 K/uL (4.8-10.8) Red Blood Count 4.06 M/uL (4.2-5.4) Hemoglobin 12.9 g/dL (12.0-16.0) Hematocrit 35.8 % (37-47) Mean Corpuscular Volume 88.2 fL (80-100) Mean Corpuscular Hemoglobin 31.8 pg (25-34) Mean Corpuscular Hemoglobin Concent 36.0 g/dl (32-36) Platelet Count 202 K/uL (130-400) Mean Platelet Volume 9.7 fL (7.4-10.4) Neutrophils (%) (Auto) 63.4 % Lymphocytes (%) (Auto) 25.1 % Monocytes (%) (Auto) 7.0 % Eosinophils (%) (Auto) 3.7 % Basophils (%) (Auto) 0.5 % Neutrophils # (Auto) 5.02 K/uL (1.4-6.5) Lymphocytes # (Auto) 1.98 K/uL (1.2-3.4) Monocytes # (Auto) 0.55 K/uL (0.11-0.59) Eosinophils # (Auto) 0.29 K/uL (0-0.5) Basophils # (Auto) 0.04 K/uL (0-0.2) RDW Standard Deviation 42.2 fL (36.4-46.3) RDW Coefficient of Variation 13.0 % (11.5-14.5) Immature Granulocyte % (Auto) 0.3 % Immature Granulocyte # (Auto) 0.02 K/uL (0.00-0.02) Anion Gap 9.0 mmol/L (3-11) Est Creatinine Clear Calc Drug Dose 74.8 ml/min Estimated GFR () 108.1 Estimated GFR (Non- 93.3 BUN/Creatinine Ratio 20.6 (10-20) Calcium Level 8.2 mg/dl (8.5-10.1) Total Bilirubin 0.4 mg/dl (0.2-1) Direct Bilirubin 0.1 mg/dl (0-0.2) Aspartate Amino Transf (AST/SGOT) 31 U/L (15-37) Alanine Aminotransferase (ALT/SGPT) 30 U/L (12-78) Alkaline Phosphatase 110 U/L (45-117) Troponin I < 0.015 ng/ml (0-0.045) Total Protein 7.0 gm/dl (6.4-8.2) Albumin 3.2 gm/dl (3.4-5.0) Lipase 111 U/L (73-393) Bedside Troponin I < 0.030 ng/ml (0-0.045) Medications Administered Medications (Trade) Dose Ordered Sig/Jasvir Route Start Time Stop Time Status Last Admin Dose Admin Potassium Chloride (Klor-Con M10) 20 meq NOW STAT PO 11/28/17 00:35 11/28/17 00:36 DC 11/28/17 00:56 20 MEQ ED Course Prior records/ancillary studies reviewed. Triage Nursing notes reviewed. Additional history obtained from family. The patient's history was concerning for chest pain. Differential diagnosis: Etiologies such as cardiac ischemia, aortic dissection, pulmonary embolism, pneumonia, pneumothorax, musculoskeletal, infections, pericarditis, myocarditis , esophageal rupture, gastrointestinal, as well as others were entertained. Physical examination: As above. ER treatment provided: Patient was observed On reassessment the patient felt better. Diagnostic interpretation by me: The electrocardiogram was normal sinus, normal intervals, minimal ST depression in V5 V6, rate of 54. Impression sinus bradycardia with ST depression in the lateral leads interpreted by myself. EKG was compared to prior EKG from May [address] depression in lateral leads interpreted by myself. The labs revealed negative troponin. Hypokalemia this is replaced orally Imaging studies: Chest x-ray with no acute consolidation, pneumothorax free of my interpretation Consultation: A consultation was placed with the hospitalist, Dr Nolen. The case was discussed and diagnostics were reviewed. The patient was evaluated in the ER for further treatment. Exam and history seem consistent with chest pain concerning for cardiac in etiology. Patient has a history of heart disease. Patient was diaphoretic and had nausea and vomiting with her symptoms. Her symptoms have been present for an hour. Her first troponin was negative. She has some subtle ST depression in the lateral leads. She will be evaluated by medicine. Patient already took aspirin 325 mg 3 just prior to arrival. She was chest pain-free upon arrival. By the evaluation outlined above emergent etiologies such as aortic dissection , pulmonary embolism, pneumonia, pneumothorax, infections, pericarditis, myocarditis, gastrointestinal, as well as others were deemed relatively unlikely. The pt informed about the findings as listed above. All questions were answered and pleased with the treatment. Case reviewed with my attending The chart was completed utilizing [employer] voice recognition software. Grammatical errors, random word insertions, pronoun errors, and incomplete sentences are an occassional consequence of this system due to software limitations, ambient noise, and hardware issues. Any formal questions or concerns about the content, text, or information contained within the body of this dictation should be directly addressed to the physician geriatric nursing assistant for clarification. Medical Decision As above Medication Reconcilliation Current Medication List: was personally reviewed by me Blood Pressure Screening Patient's blood pressure: Normal blood pressure Impression Primary Impression: Substernal precordial chest pain Additional Impression: Hypokalemia Departure Information Referrals RV. Crook MD (PCP) Patient Instructions My [facility] Problem Qualifiers
[2017-11-28] MEDS: NITROGLYCERIN 2% OINTMENT 30GM TUBE EXT SCH ×2 (03:48→10:00)
--- NOTE | 2017-11-28 05:59 | EMERGENCY ROOM VISIT NOTE ---
ED Visit Note First contact with patient: 23:37 I have personally evaluated and examined this patient. I agree with assessment and plan of Adri Castillo PA-C.
[2017-11-28] MEDS: HEPARIN SOD 5000 UNIT/0.5 ML CARP SQ SCH ×3 (08:15→20:35)
[2017-11-28] MEDS: CLOPIDOGREL BISULFATE 75 MG TAB PO SCH (08:56)
[2017-11-28] MEDS: ASPIRIN 81 MG ECTAB PO SCH (08:56)
[2017-11-28] MEDS: ATORVASTATIN 40 MG TAB PO SCH (08:56)
[2017-11-28] MEDS: LISINOPRIL 20 MG TAB PO SCH ×2 (08:57→20:35)
[2017-11-28] MEDS: METOPROLOL TARTRATE 25 MG TAB PO SCH ×2 (08:57→20:35)
[2017-11-28] MEDS: ACETAMINOPHEN 325 MG TAB PO PRN ×2 (08:59→23:26)
[2017-11-28] MEDS ORDERED: CITALOPRAM 20 MG TAB PO SCH (09:00)
--- NOTE | 2017-11-28 09:57 | DIAGNOSTIC IMAGING REPORT ---
SINGLE VIEW CHEST CLINICAL HISTORY: Atypical chest pain. Nausea. FINDINGS: An AP, portable, upright chest radiograph is compared to chest x-ray and chest CT dated 05/30/2013. The cardiomediastinal silhouette is unremarkable. Chronic interstitial thickening is similar to previous. There is bibasilar atelectasis. No airspace consolidation is seen typical for pneumonia and there is no large pleural effusion. No pneumothorax is seen. The skeletal structures are osteopenic. The bony thorax is grossly intact. IMPRESSION: No acute cardiopulmonary abnormality. Electronically signed by: Celestine Jacobs M.D. 11/28/2017 9:55 AM Dictated Date/Time: 11/28/2017 9:54 AM
[2017-11-28] MEDS ORDERED: NURSING VERBAL MED ORDER ONE ×4 (10:30→18:15)
[2017-11-28] MEDS ORDERED: MoRPHine SULFATE 2 MG/ML CARP IV STA (10:33)
[2017-11-28] MEDS ORDERED: SUCRALFATE 1 GM/10 ML UDC PO ONE (11:00)
--- NOTE | 2017-11-28 11:04 | Progress Note ---
Progress Note Date of Service Nov 28, 2017. Progress Note 67 y/o F Hx HTN, HPL, GERD, possible AF (loop recorder 10/14), CAD - MS/LAD stent 2012. Pt presents with L CP radiating into L arm, accompanied by diaphoresis and SOB. Denies N/V, lightheadedness. Initial EKG and troponin do not support acute ischemia, as well as repeat EKG does not show any acute changes except sinus bradycardia and slightly prolonged QT. Pt was seen and examined by me. Pt has epigastric cp, w/o diaphoresis, nausea, vomiting, w/o radiation to left or right arm, jaw or neck. Pt is also c/o of headache,but denies any blurry vision. Pt states she is burping more than usually at home as well as here in hospital. No heart raza, morphine did alleviate her pain symptoms. VS: Stable CVS: S1,s2, RRR sinus ivan Gi: epigastric pain, BS normal, NT, ND Resp: cta bilateral, no wheezing. Neuro: AAOx3, no focal neuro deficits. A/P: Atypical chest pain in a 67 year old female with histroy of CAD s/p stenting in 2012 rule out cardiac vs GI etiology -- EKG and trop so far negative -- Cardiology consult since patient is also wearing recorder. -- Cp currently at 2 , hold nitro paste( because of headache) and gave morphine 1 mg IV X1 -- Continue BB, aspirin, Plavix. -- Will continue with Protonix and give 1 dose of Carafate. -- Please dc iv fluid, patient is eating and drinking DVT: Heparin Gi: Protonix
[2017-11-28] MEDS: AMLODIPINE BESYLATE 5 MG TAB PO SCH (13:16)
--- NOTE | 2017-11-28 13:35 | CARDIOLOGY CONSULTATION ---
DATE OF CONSULTATION: 11/28/2017 REQUESTING: Dr. Kody Nolen. CONSULTANTS: Joni Hill D.O., [facility] for Dr. 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 REASON FOR CONSULTATION: Chest discomfort. Dear Dr. Nolen, thank you for requesting cardiology consultation on Nelda with regards to her episode of chest discomfort last evening. She notes that she had a can of soup around 6:30 last evening, around 10:30 in the evening she was sitting in a chair, she had a sudden onset of lower chest and epigastric discomfort. She noticed palpitations with it. She became sweaty and diaphoretic. She had paresthesias in her fingertips. There was no radiation of her discomfort to her neck, jaw, back or arm. Given her history of coronary artery disease, she came to the Emergency Room. Her symptoms at this point have resolved. She does note that she has had a history of migraines and had a headache yesterday. She took Excedrin Migraine during the day to help relieve her symptoms. Here in the Emergency Room, she received nitro paste which has exacerbated her headache and this has since been discontinued and with morphine her headache has improved. She notes in the days or prior to this episode, she had no anginal symptoms. She was able to climb a flight of stairs and do her normal activities without any chest pain or chest pressure or increasing shortness of breath. She denies any episodes of palpitations other than with the epigastric discomfort since her implantable loop recorder was placed. She denies any presyncope, syncope, lower extremity edema, bleeding, bruising, dark stools, black stools, fevers. She does have a cough and notes that her voice has been off and she feels like she has had an illness over the last 3-4 days. She does get symptoms of heartburn. The rest of review of systems is otherwise negative. PAST MEDICAL HISTORY: 1. Coronary artery disease, status post angioplasty and stenting of the proximal LAD May 2013 with residual 20-30% distal left main stenosis, 20% ostial LAD stenosis, 50-70% stenosis of the septal compliance assistant, 50% stenosis of the diagonal, 30-50% ostial circular lesion with a 30% stenosis in the mid portion, and a 30% lesion in a marginal branch, 30% stenosis in the proximal and mid RCA. 2. History of symptomatic palpitations, status post implantable loop recorder. 3. Hyperlipidemia. 4. Hypertension. 5. Fatigue. 6. History of migraines. 7. Osteoarthritis. 8. Osteopenia. FAMILY HISTORY: Positive for ovarian cancer, colitis, hemochromatosis. SOCIAL HISTORY: She has a history of alcohol use but not currently. She is . She is a lifetime nonsmoker. MEDICATIONS: Reviewed in electronic medical record. ALLERGIES: No known drug allergies. PHYSICAL EXAMINATION: GENERAL: She is awake, alert, oriented x3. She is in no acute distress. She is a well-appearing female who looks her stated age. VITAL SIGNS: Her heart rate is 58, blood pressure 166/74, respirations 18, sat 96%. NECK: 2+ carotid upstrokes, no evidence of carotid bruits. Jugular venous pressure appeared normal. HEENT: Sclerae is anicteric. Hearing is normal. LUNGS: Clear to auscultation bilaterally. No rales, rhonchi or wheezing. HEART: Regular rate and rhythm. No appreciable murmurs, rubs or gallops. ABDOMEN: Soft, nontender, nondistended. Positive bowel sounds. EXTREMITIES: No clubbing, cyanosis or edema. PSYCHIATRIC: She appeared anxious. NEUROLOGIC: Grossly nonfocal. DATA: EKG this morning - sinus bradycardia, prolonged QTC at [address]-T changes. LABORATORY STUDIES: Her troponins are negative so far. Her CBC is normal. Sodium 139, potassium 3.3. AST and ALT were normal. Her lipase is normal. Her BUN was 13, creatinine 0.62. IMAGING DATA: Her chest x-ray revealed no active disease. IMPRESSION: 1. Epigastric discomfort and lower chest discomfort, question related to esophageal reflux disease. 2. History of coronary disease with angioplasty and stenting of the proximal left anterior descending coronary artery in 2013 with residual disease as described above. 3. Recent implantable loop recorder for atrial arrhythmias. 4. Hypertension. 5. Hyperlipidemia. 6. Gastroesophageal reflux disease. I made the following recommendations: Continue to trend her troponins. I think this was epigastric in nature and may have been exacerbated by all the Excedrin she took yesterday. In the H&P for her loop recorder, she was on pantoprazole, it is on her medication list but q. 48, if possible, I would change it to daily. She is also scheduled to receive Carafate this morning. We will interrogate her loop recorder to make sure she did not have any atrial arrhythmias last evening as a potential cause for her symptoms. Her QTC is prolonged on her EKG, likely related to her Lexapro. Given the prolongation, one should consider reducing her Lexapro dose and then reassessing her EKG a week later. Her blood pressures remain elevated here, they were noted to be elevated in the past in an ER visit. Given her known coronary artery disease and the fact she is relatively bradycardic and on the max dose of lisinopril, I would add amlodipine 2.5 mg to her medical regimen and up titrate as her blood pressure allows, this will also help as an antianginal. Dr. Gama will return tomorrow. Thank you for allowing us to participate in her care. KRISTIAN
[2017-11-28] MEDS ORDERED: HydrALAZINE HCL 20 MG/ML VIAL IV. STA (23:59)
[2017-11-29] VITALS (13 sets, daily range): BP systolic 144–189; BP diastolic 73–93; PULSE 54–62; TEMP 36.4–36.7; O2SAT 93–97
[2017-11-29 03:16] LABS: CALCIUM 8.2 mg/dl (8.5-10.1); CREATININE 0.57 mg/dl (0.60-1.20); POTASSIUM 3.8 mmol/L (3.5-5.1)
[2017-11-29] MEDS: MAGNESIUM SULFATE 1GM / D5W 1 GM in PREMIXED IN D5W 100 ML IV SCH ×2 (04:11→05:05)
[2017-11-29] MEDS: ACETAMINOPHEN 325 MG TAB PO PRN (04:22)
[2017-11-29] MEDS: HEPARIN SOD 5000 UNIT/0.5 ML CARP SQ SCH ×2 (05:36→13:53)
[2017-11-29] MEDS ORDERED: KETOROLAC TROMETHAMINE 15 MG/ML VIAL ONE (06:22)
[2017-11-29] MEDS ORDERED: ONDANSETRON INJ 2 MG/ML 2 ML VIAL IV ONE (06:30)
[2017-11-29] MEDS ORDERED: KETOROLAC TROMETHAMINE 15 MG/ML VIAL IV. ONE (06:30)
[2017-11-29] MEDS ORDERED: NURSING VERBAL MED ORDER ONE ×2 (06:30)
[2017-11-29] MEDS: LISINOPRIL 20 MG TAB PO SCH (07:20)
[2017-11-29] MEDS: ASPIRIN 81 MG ECTAB PO SCH (07:20)
[2017-11-29] MEDS: CLOPIDOGREL BISULFATE 75 MG TAB PO SCH (07:20)
[2017-11-29] MEDS: METOPROLOL TARTRATE 25 MG TAB PO SCH (07:20)
[2017-11-29] MEDS: AMLODIPINE BESYLATE 5 MG TAB PO SCH (07:21)
[2017-11-29] MEDS: ATORVASTATIN 40 MG TAB PO SCH (07:21)
[2017-11-29] MEDS ORDERED: PANTOprazole SOD 40 MG TAB PO SCH (08:00)
[2017-11-29] MEDS ORDERED: CITALOPRAM 20 MG TAB PO SCH (09:00)
[2017-11-29] MEDS ORDERED: RIZATRIPTAN BENZOATE 10 MG TAB PO ONE (09:30)
[2017-11-29] MEDS ORDERED: AMLODIPINE BESYLATE 5 MG TAB PO ONE (11:30)
[2017-11-29] MEDS ORDERED: MAGNESIUM SULFATE 1GM / D5W 1 GM in PREMIXED IN D5W 100 ML IV ONE (11:45)
--- NOTE | 2017-11-29 13:26 | CARDIOLOGY PROGRESS NOTE ---
DATE: 11/29/2017 HISTORY OF PRESENT ILLNESS: The patient was seen by me this morning in her medical floor/telemetry unit room. Her main complaint this morning is headache. She has had migraine headaches since admission. She rates the headache as a 4/10 on a scale of 0-10. She had had no further epigastric discomfort since admission. The episodes the time of admission lasted approximately 1 hour. She states it was associated with diaphoresis. Since then, no further epigastric discomfort. No chest pain. She denies any dyspnea. No orthopnea or PND. No palpitations, lightheadedness, or syncope. She does have a decreased appetite today. No leg pain. No peripheral edema. No focal motor weakness. MEDICATIONS: This morning were amlodipine 2.5 mg daily, aspirin 81 mg daily, pantoprazole 40 mg daily, citalopram 10 mg daily, atorvastatin 80 mg daily, clopidogrel 75 mg daily, lisinopril 20 mg p.o. b.i.d., metoprolol tartrate 25 mg b.i.d., subQ heparin 5000 units q. 8 hours, and several p.r.n. medications. ALLERGIES AND ADVERSE DRUG REACTIONS: None. PHYSICAL EXAMINATION: VITAL SIGNS: This morning revealed oral temperature 36.6, pulse 61, blood pressure 169/81, and pulse oximetry room air 96%. NECK: No jugular venous distention. LUNGS: Clear. Normal respiratory effort. HEART: Regular rhythm. No murmur, S3, or rub. ABDOMEN: Soft. Nontender. No palpable mass or organomegaly. No bruits. EXTREMITIES: No pretibial edema. NEUROLOGIC: Alert and oriented x3. Motor grossly intact. PSYCHIATRIC: Affect is normal. DATA: The patient has an implantable loop recorder. She sent a transmission on the night of admission at the time of her symptoms. This admission was reviewed. It showed bradycardia. No significant arrhythmias. Troponin I on November 27 was less than 0.015. Labs today was sodium 138, potassium 3.8, chloride 106, carbon dioxide 26, BUN 13, creatinine 0.57, random glucose 105. Magnesium 1.7. Troponin I on November 28 was less than 0.030. Electrocardiogram yesterday reviewed by me. Sinus bradycardia, prolonged QT interval. Corrected QT interval was [address] or T-wave abnormalities. Compared to an earlier electrocardiogram of November 28 QT interval had increased. ASSESSMENT: 1. Prolonged episode of epigastric discomfort prompting this admission. Electrocardiogram without any ischemic changes. Cardiac enzymes negative for myocardial injury. 2. Migraine headache. She has a history of migraine headaches. 3. Hypertension. Blood pressure likely increased at this time secondary to her headache. 4. Dyslipidemia and coronary artery disease. She is on a maximum atorvastatin dose consistent with current guidelines. 5. No bleeding complaints on dual antiplatelet therapy. RECOMMENDATIONS: 1. Treat her headache. This will be by the hospitalist service. 2. Her magnesium level was slightly decreased today. Will give magnesium supplementation. 3. Continue current cardiac medications and doses. 4. When her headache has resolved and she is able to walk on a treadmill, would perform a stress echocardiogram. She does not need to remain hospitalized to have this done. It could be done following discharge. 5. Would repeat a troponin I today just to make sure that there has been no increase in her troponin since admission.
[2017-11-29] MEDS ORDERED: NRV5 PO (14:10)
--- NOTE | 2017-11-29 14:14 | Discharge Instructions ---
Discharge Instructions Date of Service Nov 29, 2017. Admission Reason for Admission: Chest Pain Discharge Discharge Diagnosis / Problem: Chest pain, migraine headache Discharge Goals Goal(s): Decrease discomfort, Improve function, Improve disease control Activity Recommendations Activity Limitations: resume your previous activity . 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 Clifford for appointment in 5-7 days, request a hospital follow up Current Hospital Diet Patient's current hospital diet: AHA Diet (Heart Healthy) Discharge Diet Recommended Diet: AHA Diet (Heart Healthy) Pending Studies Studies pending at discharge: no Medical Emergencies . Who to Call and When: Medical Emergencies: If at any time you feel your situation is an emergency, please call 911 immediately. . Non-Emergent Contact Non-Emergency issues call your: Primary Care Provider Call Non-Emergent contact if: you have any medication questions . . "Provider Documentation" section prepared by Mikey Aldrich. . [place] Drug Monitoring Program Search Results: no issues identified
[2017-11-30] MEDS ORDERED: AMLODIPINE BESYLATE 5 MG TAB PO SCH (09:00)
--- NOTE | 2017-12-01 08:40 | Discharge Summary ---
Discharge Summary Date of Service Nov 29, 2017. Discharge Summary Admission Date: Nov 28, 2017 at 01:05 Discharge Date: Nov 29, 2017 Discharge Disposition: Home Principal Diagnosis: Chest pain Problems/Secondary Diagnoses: Migraine Headache Uncontrolled hypertension h/o CAD with stents Palpitations Immunizations: Have You Had Influenza Vaccine: Unknown Influenza Vaccine Date: May 30, 2012 History of Tetanus Vaccine?: Unknown Tetanus Immunization Date: May 30, 2011 History of Pneumococcal: Unknown Pneumococcal Date: Jun 29, 2011 History of Hepatitis B Vaccine: Unknown Procedures: none Consultations: Cardiology Medication Reconciliation New Medications: Amlodipine Besylate (Amlodipine Besylate) 5 Mg Tab 5 MG PO QAM, #30 TAB 1 Refill Continued Medications: Aspirin (Aspir-Low) 81 Mg Tab 81 MG PO QAM, #30 5 Refills Atorvastatin (Lipitor) 80 Mg Tab 80 MG PO DAILY Calcium Carbonate-Vitamin D W/ (Caltrate 600 Plus) 1 Tab Tab 1 TAB PO DAILY, TAB Citalopram (Citalopram Hydrobromide) 20 Mg Tab 20 MG PO DAILY Clopidogrel Bisulfate (Clopidogrel) 75 Mg Tab 75 MG PO DAILY Cyanocobalamin (Vitamin B-12 1000 Mcg) 1,000 Mcg Tab 1000 MCG PO DAILY, TAB Lisinopril (Lisinopril) 20 Mg Tab 20 MG PO BID Metoprolol Tartrate (Lopressor) (Lopressor) 25 Mg Tab 25 MG PO BID, TAB Pantoprazole Sodium (Protonix) 20 Mg Tab 20 MG PO Q2D Zinc Gluconate (Zinc) Unknown Strength Tab Unknown Dose PO BID [Ascorbic Acid ] () 600 MG PO BID Discharge Exam Patient feeling well on the day of discharge, no chest pain. Only complaint was a migraine headache. Says that she typically gets migraines once a month, not a serious problem, used to be worse. She had an episode of vomiting in the morning but was then able to eat breakfast and lunch without issues. Headache was worse after vomiting, gave a dose of Maxalt, headache resolved completely. She said she used to take Imitrex as needed but that was stopped after 2012 with her stents. Takes metoprolol for CAD which may be helping prevent migraine headaches. BP was elevated in the AM, 170's systolic, despite lisinopril and metoprolol. Gave Norvasc 5mg, improvement in BP. Patient wanted to go home in the afternoon since she was feeling much better. Discussed plan to continue Norvasc 5mg daily and follow up with PCP in a week for BP check. Review of Systems: Constitutional: + problem reported (migraine headache), No fever, No chills , No sweats, No weight loss, No weakness, No fatigue Eyes: No worsening of vision, No eye pain, No redness, No discharge, No diplopia, No problem reported ENT: No hearing loss, No unusual epistaxis, No nasal symptoms, No sore throat, No tinnitus, No dental problems, No trouble swallowing, No problem reported Respiratory: No cough, No sputum, No wheezing, No shortness of breath, No dyspnea on exertion, No dyspnea at rest, No hemoptysis, No problem reported Cardiovascular: No chest pain, No orthopnea, No PND, No edema, No claudication, No palpitations, No problem reported Abdomen: + vomiting (in the AM, resolved), No pain, No nausea, No diarrhea, No constipation, No GI bleeding, No problem reported Musculoskeletal: No joint pain, No muscle pain, No swelling, No calf pain, No problem reported Genitourinary - Female: No dysuria, No urinary frequency, No urinary urgency , No urinary incontinence, No urinary retention, No hematuria Neurologic: No memory loss, No paralysis, No weakness, No numbness/tingling , No vertigo, No balance problems, No problem reported Psychiatric: No depression symptoms, No anhedonism, No anxiety, No insomnia , No substance abuse, No problem reported Endocrine: No fatigue, No excessive thirst, No excessive urination, No problem reported Hematologic / Lymphatic: No abnormal bleeding/bruising, No clotting problems , No swollen lymph nodes, No night sweats, No problem reported Integumentary: No rash, No itch, No new/changing skin lesions, No color change, No bleeding, No problem reported Physical Exam: General Appearance: WD/WN, no apparent distress Eyes: normal inspection, EOMI, sclerae normal ENT: normal ENT inspection, hearing grossly normal, pharynx normal Neck: supple, no adenopathy, no JVD, trachea midline Respiratory/Chest: chest non-tender, lungs clear, normal breath sounds, no respiratory distress, no accessory muscle use Cardiovascular: regular rate, rhythm, no edema, no gallop, no JVD, no murmur , normal peripheral pulses Abdomen / GI: normal bowel sounds, non tender, soft, no organomegaly Extremities: normal inspection, no calf tenderness, normal capillary refill , no pedal edema, normal range of motion, pelvis stable Neurologic/Psychiatric: mess cook II-XII nml as tested, no motor/sensory deficits , alert, normal mood/affect, normal reflexes, oriented x 3 Skin: normal color, warm/dry, no rash Lymphatic: no adenopathy Hospital Course 67 y/o F Hx HTN, HPL, GERD, possible AF (loop recorder 10/14), CAD - MT/LAD stent 2012. Pt presents with L CP radiating into L arm, accompanied by diaphoresis and SOB. Denies N/V, lightheadedness. Initial EKG and troponin do not support acute ischemia. 1) CP/CAD - initial EKG and troponin negative, troponin not cycled on 11/28 repeat troponin in afternoon on 11/29, 0.15 patient did not have any further chest pain for 48 hours of admission, no diaphoresis, no dyspnea cardiology recommended following up for outpatient stress test in near future once migraine resolved and BP better controlled should follow up with PCP and get referral for outpatient stress echo 2) HTN - poorly controlled on lisinopril 20mg BID and metoprolol 25mg BID cannot titrate metoprolol because HR is 50-60's Norvasc 5mg given and BP improved recommend continuing Norvasc 5mg and follow up with PCP in one week for BP check 3) Migraine headache resolved with Maxalt one dose reviewing recommendations from literature, regular use of triptans is not recommended with history of CAD already on metoprolol which could be playing role of suppressing migraines recommend that she continue Eccedrin PRN but take with food migraine not a major issue, one headache a month 4) GERD - cont PPi 5) Loop recorder in place for palpitations/suspected AF - sinus rhythm on admission 6) HPL - cont Statin Total Time Spent: Greater than 30 minutes This includes examination of the patient, discharge planning, medication reconciliation, and communication with other providers. Discharge Instructions Please refer to the electronic Patient Visit Report (Discharge Instructions) for additional information. Follow-Up Dr. Clifford in one week for BP check, refer for stress test Additional Copies To RV. Crook MD
== END 2017-11-29 15:05 | disposition home or self-care (01) ==
LOC: C.EDB 23:29 → C.MED 11-28 01:05 → ENRESERV 11-28 01:47
PROVIDERS: ADMIT Internal Medicine; ATTEND Internal Medicine
DX: R07.2 Precordial pain (principal); R10.13 Epigastric pain; G43.909 Migraine, unspecified, not intractable, without status migrainosus; I10 Essential (primary) hypertension; I25.10 Atherosclerotic heart disease of native coronary artery without angina pectoris; R00.2 Palpitations; K21.9 Gastro-esophageal reflux disease without esophagitis; E78.5 Hyperlipidemia, unspecified; M19.90 Unspecified osteoarthritis, unspecified site; Z98.61 Coronary angioplasty status; Z79.82 Long term (current) use of aspirin; Z80.41 Family history of malignant neoplasm of ovary; Z83.3 Family history of diabetes mellitus; Z82.49 Family history of ischemic heart disease and other diseases of the circulatory system

== ENCOUNTER → 2017-12-20 | Outpatient (CLI) | payer OTHER ==
[~2017-12-20] MED LIST changes: +ASCORBIC ACID PO; +NRV5 PO; +ZINC1TAB4 PO
--- NOTE | 2017-12-20 11:09 | DIAGNOSTIC IMAGING REPORT ---
CT OF THE HEAD WITHOUT CONTRAST CLINICAL HISTORY: Headache. Ringing in ears. COMPARISON STUDY: No previous studies for comparison. CT DOSE: 690.05 mGycm TECHNIQUE: Helical axial images of the head were obtained without IV contrast. Automated exposure control was utilized for the study. A dose lowering technique was utilized adhering to the principles of ALARA. FINDINGS: No acute intracranial hemorrhage, midline shift or mass effect is present. Ventricular system is normal. The basilar cisterns are patent. There are no extra-axial collections. White matter hypodensities favor small vessel disease. There are no findings to suggest acute dural sinus thrombosis or acute territorial infarct. Mastoid air cells are clear. There is mild mucosal thickening and secretions within the right sphenoid sinus. There are no significant calvarial abnormalities. IMPRESSION: 1. No acute intracranial findings. 2. Mild mucosal thickening and secretions within the right sphenoid sinus. 3. Scattered white matter hypodensities which likely reflect small vessel disease. Electronically signed by: Sunil Schumacher M.D. 12/20/2017 11:08 AM Dictated Date/Time: 12/20/2017 11:05 AM
== END | disposition home or self-care (01) ==
LOC: C.CTS 10:36
PROVIDERS: ATTEND Internal Medicine
DX: H93.19 Tinnitus, unspecified ear (principal); R51 Headache

== ENCOUNTER 2019-11-16 11:28 | Inpatient (IN) ==
--- NOTE | 2019-11-02 08:42 | PAT Medication Instructions ---
Medication Instructions Date of Service November 02, 2019 Home Medications Medication Instructions Recorded clopidogrel 75 mg tablet 75 mg PO QAM #90 tab 10/30/19 ascorbic acid (vitamin C) [Vitamin C] 500 mg PO QAM atorvastatin 80 mg PO QPM calcium carbonate-vitamin D3 [Caltrate 600 + D] 1 tab PO QAM Hemp 1 cap PO QAM amlodipine 5 mg PO QAM aspirin 81 mg PO QAM cholecalciferol (vitamin D3) [Vitamin D3] 400 unit PO QAM citalopram 20 mg PO QAM clopidogrel 75 mg tablet 75 mg PO QAM cyanocobalamin (vitamin B-12) [Vitamin B-12] 500 mcg PO QAM glucosamine sulfate 1,000 mg PO QAM lisinopril 20 mg PO QAM magnesium oxide 400 mg PO QAM metoprolol succinate 25 mg PO QAM multivitamin 1 tab PO QAM pantoprazole 20 mg PO QAM ASK your prescriber and surgeon clopidogrel 75 mg tablet 75 mg PO QAM (in order for spinal anesthesia, clopidogrel/Plavix needs to be stopped 7 days before surgery. Please check if okay with doctor that prescribes this to you) STOP taking 2 weeks before surgery (or as soon as possible if surgery is within 2 weeks) glucosamine sulfate 1,000 mg PO QAM DO NOT take the morning of surgery ascorbic acid (vitamin C) [Vitamin C] 500 mg PO QAM calcium carbonate-vitamin D3 [Caltrate 600 + D] 1 tab PO QAM Hemp 1 cap PO QAM cholecalciferol (vitamin D3) [Vitamin D3] 400 unit PO QAM cyanocobalamin (vitamin B-12) [Vitamin B-12] 500 mcg PO QAM lisinopril 20 mg PO QAM magnesium oxide 400 mg PO QAM multivitamin 1 tab PO QAM Take morning of surgery With a small sip of water, OTHERWISE NOTHING TO EAT OR DRINK AFTER MIDNIGHT: amlodipine 5 mg PO QAM citalopram 20 mg PO QAM metoprolol succinate 25 mg PO QAM pantoprazole 20 mg PO QAM Take evening before surgery atorvastatin 80 mg PO QPM Other Notes If you have any questions please call us at [phone] or [phone] or [phone] or [phone]
--- NOTE | 2019-11-03 10:37 | Anesthesiology Consultation ---
Date of Service November 03, 2019 Assessment & Plan (1) Encounter for pre-operative examination: Chart Review Chart Review: Pending: Refer to Additional Notes / Consult section (awaiting surgeon ordered PCP and cardio clearance ) and Patient seen in Pre Admission Testing Awaiting surgeon ordered PCP/cardio clearance ( 11/10) Teaching & Discussion Pre-Anesthesia Teaching/Discussion Notes: Instructed NPO after midnight before surgery,except medications with 15 cc of water. Medication instructions provided according to the PAT guidelines. History Surgery Operation Date: 11/16/19 07:30 Proposed Procedures p Left Total Knee Arthroplasty - Jung Cardona MD Height/Weight Height: 4 ft 11.75 in Weight: 72.8 kg Allergies Allergy/AdvReac Type Severity Reaction Status Date / Time No Known Allergies Allergy Verified 10/30/19 08:56 Medications Home Medications Medication Instructions Recorded Confirmed Last Taken ascorbic acid (vitamin C) [Vitamin 500 mg PO QAM 09/13/18 10/30/19 Unknown C] atorvastatin 80 mg PO QPM 09/13/18 10/30/19 Unknown calcium carbonate-vitamin D3 1 tab PO QAM 09/13/18 10/30/19 Unknown [Caltrate 600 + D] Hemp 1 cap PO QAM 10/30/19 10/30/19 Unknown amlodipine 5 mg PO QAM 10/30/19 10/30/19 Unknown aspirin 81 mg PO QAM 10/30/19 10/30/19 Unknown cholecalciferol (vitamin D3) 400 unit PO QAM 10/30/19 10/30/19 Unknown [Vitamin D3] citalopram 20 mg PO QAM 10/30/19 10/30/19 Unknown clopidogrel 75 mg tablet 75 mg PO QAM #90 tab 10/30/19 Unknown cyanocobalamin (vitamin B-12) 500 mcg PO QAM 10/30/19 10/30/19 Unknown [Vitamin B-12] glucosamine sulfate 1,000 mg PO QAM 10/30/19 10/30/19 Unknown lisinopril 20 mg PO QAM 10/30/19 10/30/19 Unknown magnesium oxide 400 mg PO QAM 10/30/19 10/30/19 Unknown metoprolol succinate 25 mg PO QAM 10/30/19 10/30/19 Unknown multivitamin 1 tab PO QAM 10/30/19 10/30/19 Unknown pantoprazole 20 mg PO QAM 10/30/19 10/30/19 Unknown Past Medical History Medical History (Updated 11/06/19 @ 08:33 by Kami Canela PA-C) Acid reflux disease Well controlled and stable Anxiety CAD (coronary artery disease) s/p stent to LAD 2012 DJD (degenerative joint disease) of knee Hx of migraines Stable - gets headaches Hyperlipidemia Hypertension Osteoarthritis Exercise / Class Metabolic Activity II 4-5 Yardwork/Stairs/Walk up hill (one flight of stairs- no chest pain or SOB ) Past Family History Family History (Updated 10/30/19 @ 09:08 by Gladys Thompson, RN) Sister Hemochromatosis Mother Ovarian cancer Breast cancer Grandmother Breast cancer Brother Colon cancer Aunt Family history of diabetes mellitus Grandmother (Paternal) Family history of diabetes mellitus Past Surgical History Surgical History (Updated 11/06/19 @ 08:29 by Kami Canela PA-C) H/O hysterectomy for benign disease History of cardiac cath 2012 [facility] - WITH 1 STENT - PLACED IN LAD History of carpal tunnel release of both wrists History of loop recorder PLACED 2017 FOR ATRIAL ARRHYTHMIAS PER RECORDS- CURRENTLY IN PLACE TO BE REMOVED IN APR 2020 Hx of tonsillectomy Past Anesthesia History No Hx of Anesthesia Complications and No Family Hx of Anesthesia Complications History of PONV History of PONV (EPISODE OF DRY HEAVES AFTER SURGERY (unsure what surgery)) and Hx of Motion Sickness (ON BOATS ) Social History Smoking Status: Never smoker Do You Dip or Chew Tobacco: No Hx Alcohol Use: No Hx Substance Use: No substance use type: does not use Review of Systems Reflux- well controlled Presumed [place] 2012 (s/p stent) Mild snoring- no apnea Patient denies chest pain, shortness of breath, dyspnea on exertion, cough, wheezing, palpitations. No hx of seizures, stroke. No hx of blood clots or blood transfusions No recent steroid use Physical Exam Vital Signs VITALS BP 123/69 P 55 TEMP 97.6 SP02 96% RESP 16 Constitutional no acute distress ENMT Mouth: no TMJ clicking Thyromental Distance: > or= 3.5 Finger Breadths (3.5) Mallampati Class: I Missing molars. Cap on molar Neck + short neck; neck extension not limited Respiratory normal respiratory effort; no respiratory distress Auscultation: lungs clear to auscultation bilaterally; no wheezes Cardiovascular Rate/Rhythm: regular rate and regular rhythm Vessels: no carotid bruit Musculoskeletal Spine: normal cervical ROM and no pain with cervical ROM Neurologic moves all extremities Psychiatric Orientation: alert Testing Laboratory Results PT 10.4 Seconds (9.0-12.0) 11/03/19 10:46 INR 1.0 (0.9-1.1) 11/03/19 10:46 APTT 25.8 Seconds (21.0-31.0) 11/03/19 10:46 Hemoglobin A1c 5.9 % (4.5-5.6) H 11/03/19 10:46 Urine Color Yellow 11/03/19 10:46 Urine Appearance Clear (Clear) 11/03/19 10:46 Urine pH 5.5 (4.5-7.5) 11/03/19 10:46 Ur Specific [place] 1.009 (1.000-1.030) 11/03/19 10:46 Urine Protein Negative (Negative) 11/03/19 10:46 Urine Glucose (UA) Negative (Negative) 11/03/19 10:46 Urine Ketones Negative (Negative) 11/03/19 10:46 Urine Nitrite Negative (Negative) 11/03/19 10:46 Ur Leukocyte Esterase Trace (Negative) H 11/03/19 10:46 Urine RBC 0-4 /hpf (0-4) 11/03/19 10:46 Urine WBC 0-5 /hpf (0-5) 11/03/19 10:46 Ur Epithelial Cells 0-5 /lpf (0-5) 11/03/19 10:46 Blood Type O Positive 11/03/19 10:46 Antibody Screen NEGATIVE 11/03/19 10:46 Laboratory Tests 10/13/19 10/13/19 13:48 13:48 WBC 9.87 Hgb 13.5 Hct 38.5 Plt Count 355 Sodium 137 Potassium 4.0 Chloride 105 Carbon Dioxide 28 BUN 17 Creatinine 0.58 L Glucose 91 Electrocardiogram Date: 11/03/19 Findings: + SB @ (56) Compared to November 28, 2017 EKG questionable change in QRS axis. QT has shortened. Chest X-Ray Date: 11/03/19 Findings: + NAD Loop recorder device projects over the left chest. Calcified plaque of the thoracic aorta. Other Testing Carotid doppler 10/17/19= 50 to 69% stenosis in the right internal carotid artery. Approximately 50% stenosis in the left internal carotid artery. Greater than 50% stenosis in the right ECA. No significant change since last exam on 09/2018.
--- NOTE | 2019-11-03 11:12 | XRay Report ---
XR chest Pre-admission PA/Lat HISTORY: 69 years-old Female pat preoperative exam. No acute chest complaints COMPARISON: Chest radiograph 11/27/2017 TECHNIQUE: PA and lateral views of the chest FINDINGS: Loop recorder device projects over the left chest. Cardiomediastinal and hilar silhouettes are within normal limits. Calcified plaque of the thoracic aorta. There is no pneumothorax, pleural effusion, f ocal airspace consolidation or overt pulmonary edema. Bones of the chest appear grossly intact. IMPRESSION: No acute process. ACT 112: Negative or not required by law. The above report was generated using voice recognition software. It may contain grammatical, syntax o r spelling errors. Electronically signed by: Shen Gamboa M.D. 11/03/2019 11:10 AM
[2019-11-03 11:17] LABS: Partial Thromboplastin Time 25.8 Seconds (21.0-31.0); Prothrombin Time 10.4 Seconds (9.0-12.0)
[2019-11-03 11:23] LABS: Estimated Average Glucose 123 mg/dl; Hemoglobin A1C 5.9 % (4.5-5.6)
[2019-11-03 11:38] LABS: Appearance Urine Clear (Clear); Bilirubin Urine Negative (Negative); Blood Urine Negative (Negative); Color Urine Yellow; Glucose Urine UA Negative (Negative); Ketones Urine Negative (Negative); Leukocyte Esterase Urine Trace (Negative); Nitrite Urine Negative (Negative); Protein Urine Negative (Negative); Specific Gravity Urine 1.009 (1.000-1.030); Urobilinogen Urine Negative (Negative); pH Urine 5.5 (4.5-7.5)
[2019-11-03 12:02] LABS: Bacteria Urine Negative (Negative); Epithelial Cell Urine 0-5 /lpf (0-5); RBC Urine 0-4 /hpf (0-4); WBC Urine 0-5 /hpf (0-5)
--- NOTE | 2019-11-03 16:45 | Electrocardiogram Report ---
Test Reason : Blood Pressure : / mmHG Vent. Rate : 056 BPM Atrial Rate : 056 BPM P-R Int : 164 ms QRS Dur : 092 ms QT Int : 470 ms P-R-T Axes : 050 072 054 degrees QTc Int : 453 ms Sinus bradycardia Otherwise normal ECG When compared with ECG of 28-NOV-2017 10:28, Questionable change in QRS axis QT has shortened Confirmed by Rickey Rodgers ([id number]) on 11/03/2019 4:45:17 PM Referred By: Jung Cardona Confirmed By:Rickey Rodgers
--- NOTE | 2019-11-06 14:38 | History & Physical Report ---
Date of Service November 06, 2019 Assessment & Plan (1) Primary osteoarthritis of left knee: Treatment options discussed. She has failed conservative measures as above. Discussed that given her arthritic change I am uncertain arthroscopy would offer her any benefit. Risks, benefits and alternatives to surgery including but not limited to infection, DVT, pain, stiffness, need for revision surgery, damage to blood vessels, damage to nerves, PE, , were discussed with the patient and they wish to proceed. The plan will be for left total knee arthroplasty at [facility] on 11/16/19. Will plan on resuming home Plavix and aspirin as DVT prophylaxis. Will plan on home health PT upon discharge from the hospital. All questions answered. She will follow up post operativley. History of Present Illness Chief Complaint: Left knee pain Primary Care Provider: Donny Leal MD 69 year old female with PMHx significant for HTN, high cholesterol, CAD with stent, anxiety presents with long standing history of left knee pain. Pain affects her ability to carry out normal daily activity and leisure activities. She has failed conservative measures including cortisone injection, therapy, antiinflammatories. Unable to do visco injections due to cost. She would like to proceed with surgical intervention. She has had worsening arthritic change medially. She has failed conservative management Patient denies headaches, sweats, fevers, chills, double vision, blurred vision, cough, sore throat, dysphagia, chest pain, sob, wheezing, n/v/d/c, numbness, tingling, fatigue, urinary symptoms, mood disorders. ROS positive for left knee pain and stiffness. Allergies Allergy/AdvReac Type Severity Reaction Status Date / Time No Known Allergies Allergy Verified 10/30/19 08:56 Home Medications Home Medications Medication Instructions Recorded Confirmed Type ascorbic acid (vitamin C) [Vitamin 500 mg PO QAM 09/13/18 10/30/19 History C] atorvastatin 80 mg PO QPM 09/13/18 10/30/19 History calcium carbonate-vitamin D3 1 tab PO QAM 09/13/18 10/30/19 History [Caltrate 600 + D] Hemp 1 cap PO QAM 10/30/19 10/30/19 History amlodipine 5 mg PO QAM 10/30/19 10/30/19 History aspirin 81 mg PO QAM 10/30/19 10/30/19 History cholecalciferol (vitamin D3) 400 unit PO QAM 10/30/19 10/30/19 History [Vitamin D3] citalopram 20 mg PO QAM 10/30/19 10/30/19 History clopidogrel 75 mg tablet 75 mg PO QAM #90 tab 10/30/19 Rx cyanocobalamin (vitamin B-12) 500 mcg PO QAM 10/30/19 10/30/19 History [Vitamin B-12] glucosamine sulfate 1,000 mg PO QAM 10/30/19 10/30/19 History lisinopril 20 mg PO QAM 10/30/19 10/30/19 History magnesium oxide 400 mg PO QAM 10/30/19 10/30/19 History metoprolol succinate 25 mg PO QAM 10/30/19 10/30/19 History multivitamin 1 tab PO QAM 10/30/19 10/30/19 History pantoprazole 20 mg PO QAM 10/30/19 10/30/19 History Past Med/Surg History Medical History Acid reflux disease Well controlled and stable Anxiety CAD (coronary artery disease) s/p stent to LAD 2012 DJD (degenerative joint disease) of knee Hx of migraines Stable - gets headaches Hyperlipidemia Hypertension Osteoarthritis Surgical History H/O hysterectomy for benign disease History of cardiac cath 2012 [facility] - WITH 1 STENT - PLACED IN LAD History of carpal tunnel release of both wrists History of loop recorder PLACED 2017 FOR ATRIAL ARRHYTHMIAS PER RECORDS- CURRENTLY IN PLACE TO BE REMOVED IN APR 2020 Hx of tonsillectomy Family History Sister Hemochromatosis Mother Ovarian cancer Breast cancer Grandmother Breast cancer Brother Colon cancer Aunt Family history of diabetes mellitus Grandmother (Paternal) Family history of diabetes mellitus Social History Preferred Language: Croatian Communication Ability: Effective Visual Impairment: No Limitations Hearing Ability: Normal Beliefs That Will Affect Care: None marital status: Current Living Situation: Spouse current occupational status: employed Feels Safe at Home: Yes Safety Concerns: Feels Safe At This Time Smoking Status: Never smoker Tobacco Type: smokeless tobacco ; Do You Dip or Chew Tobacco: No ; Second Hand Exposure: Yes (OCCASSIONALLY) ; Hx Alcohol Use: No Hx Substance Use: No Childhood Exposure to Second-Hand Smoke: Yes Dental Care, Regularly: Yes Physical Activity Frequency: 3-4 Times per Week Physical Activity Frequency Comment: Continue to work pretty much every day Seatbelt Use: always Sunscreen Use: Yes Review of Systems All systems reviewed & are unremarkable except as noted in HPI & below Physical Exam Constitutional: well developed and well nourished; no acute distress Eyes: PERRL, conjunctivae normal, anicteric sclerae ENMT: external ear and nose normal, oropharynx normal Neck: trachea midline, no thyromegaly Respiratory: normal respiratory effort, lungs clear to auscultation Cardiovascular: RRR, no murmur, no edema Musculoskeletal: Left knee: Mild effusion with medial joint line tenderness. Positive Rohini's. Stable to valgus and varus stress tests. ROM 0-130 degrees. Skin: no rashes, warm and dry Neurologic: patellar DTR's 2+ bilat, sensation intact Psychiatric: A+Ox3, euthymic affect Results & Data Laboratory Results Lab Results 11/03/19 11/03/19 11/03/19 Range/Units 10:46 10:46 10:46 PT 10.4 (9.0-12.0) Seconds INR 1.0 (0.9-1.1) APTT 25.8 (21.0-31.0) Seconds PTT Ratio 1.0 Estimat Average Glucose 123 mg/dl Hemoglobin A1c 5.9 H (4.5-5.6) % Urine Color Urine Appearance (Clear) Urine pH (4.5-7.5) Ur Specific [place] (1.000-1.030) Urine Protein (Negative) Urine Glucose (UA) (Negative) Urine Ketones (Negative) Urine Blood (Negative) Urine Nitrite (Negative) Urine Bilirubin (Negative) Urine Urobilinogen (Negative) Ur Leukocyte Esterase (Negative) Urine RBC (0-4) /hpf Urine WBC (0-5) /hpf Ur Epithelial Cells (0-5) /lpf Urine Bacteria (Negative) Blood Type O Positive Antibody Screen NEGATIVE 11/03/19 Range/Units 10:46 PT (9.0-12.0) Seconds INR (0.9-1.1) APTT (21.0-31.0) Seconds PTT Ratio Estimat Average Glucose mg/dl Hemoglobin A1c (4.5-5.6) % Urine Color Yellow Urine Appearance Clear (Clear) Urine pH 5.5 (4.5-7.5) Ur Specific [place] 1.009 (1.000-1.030) Urine Protein Negative (Negative) Urine Glucose (UA) Negative (Negative) Urine Ketones Negative (Negative) Urine Blood Negative (Negative) Urine Nitrite Negative (Negative) Urine Bilirubin Negative (Negative) Urine Urobilinogen Negative (Negative) Ur Leukocyte Esterase Trace H (Negative) Urine RBC 0-4 (0-4) /hpf Urine WBC 0-5 (0-5) /hpf Ur Epithelial Cells 0-5 (0-5) /lpf Urine Bacteria Negative (Negative) Blood Type Antibody Screen Diagnostic Findings Left knee radiographs: Moderate joint space narrowing medial compartment with periarticular osteophyte formation and subchondrals sclerosis. MRI: demonstrates tricompartmental arthritic changes most severe medially, t earing medial meniscus, subchondral edema medial compartment
[~2019-11-16 11:28] MED LIST changes: +ACETAMINOPHEN 500 MG TAB PO SCH; -ASCORBIC ACID PO; -ASPI81TA25 PO; -ATOR-26 PO; +BUPIVACAINE 0.25% 30 ML VIAL ONE; +BUPIVACAINE 0.5 % 5 MG/1 ML PF 10ML VIAL ONE; -CALCTAB7 PO; +CEFAZOLIN 1000MG 1,000 MG/7.5 ML SYR IV SCH; +CEFAZOLIN 2000MG 2,000 MG/15 ML SYR IV SCH; -CLX/20 PO; -CYAN10004 PO; +CeleBREX 200 MG CAP PO SCH; +FAMOTIDINE 20 MG TAB PO SCH; +GABAPENTIN 300 MG CAP PO SCH; +LR 500ML BOLUS, THEN 15ML/HR IV SCH; -LSN20 PO; -METO25TA56 PO; -NRV5 PO; -PANT20TA2 PO; -PLV75 PO; +ROPIVACAINE 0.5% HCL/PF 150 MG, BUPIVACAINE 0.5% MPF 30 ML, EPINEPHrine 30MG/30ML (OR U... INSTIL SCH; -ZINC1TAB4 PO; +dexAMETHasone 4 MG TAB PO SCH
[2019-11-16] MEDS ORDERED: ONDANSETRON INJ 2 MG/ML 2 ML VIAL ONE (11:42)
[2019-11-16] MEDS ORDERED: DEXAMETHASONE SOD INJ 4 MG/ML VIAL ONE (11:42)
[2019-11-16] MEDS ORDERED: LIDOCAINE HCL 2% 2 ML VIAL/AMP(20MG/ML) INFIL ONE (11:42)
[2019-11-16] MEDS ORDERED: PROPOFOL IV EMULSION 10 MG/ML 20 ML VIAL IV ONE (11:42)
[2019-11-16] MEDS ORDERED: MIDAZOLAM HCL 1 MG/ML 2ML VIAL ONE ×2 (11:42→11:43)
[2019-11-16] MEDS ORDERED: fentaNYL citrate 100 MCG/2 ML VIAL ONE (11:43)
--- NOTE | 2019-11-16 12:12 | History & Physical Bridge Note ---
Date of Service November 16, 2019 History & Physical Bridge Note I have examined the patient, reviewed the History & Physical and in the interval since the performance of the History & Physical I have noted the following changes of clinical significance: no changes noted
[2019-11-16] MEDS ORDERED: ePHEDrine sulfate 50 MG/ML AMP IV PRN (13:03)
[2019-11-16] MEDS ORDERED: ONDANSETRON INJ 2 MG/ML 2 ML VIAL IV PRN ×2 (13:03→16:25)
[2019-11-16] MEDS ORDERED: ATROPINE SULFATE 0.1 MG/ML 10ML SYR IV PRN (13:03)
[2019-11-16] MEDS ORDERED: fentaNYL citrate 100 MCG/2 ML VIAL IV PRN (13:03)
[2019-11-16] MEDS ORDERED: BACITRACIN INJ 50,000 UNIT VIAL ONE (13:09)
[2019-11-16] MEDS ORDERED: ORTHO JOINT ANESTHETIC ONE (13:09)
--- NOTE | 2019-11-16 15:08 | Operative Report ---
Post Operative Report Pre & Post Diagnosis Operation Date: 11/16/19 14:10 Pre-Op Diagnosis: LEFT KNEE OSTEOARTHRITIS Post-Op Diagnosis: LEFT KNEE OSTEOARTHRITIS I identified the patient and participated in the time-out.: Yes Procedure Operation Date: 11/16/19 14:10 Actual Procedures p Left Total Knee Arthroplasty(Left) - Jung Cardona MD Surgeon Jung Cardona MD Superintendent [employer] Lambert Chapin PA-C Estimated Blood Loss 20 Findings Consistent with Post-Op Diagnosis Specimens Bone and tissue Drains None Anesthesia Type MAC Spinal Regional Disposition Accompanied Patient To Recovery: No Disposition: Recovery Room Indications The patient is a 69-year-old female longstanding arthritic change left knee. She is [id number] medial compartment. She is failed conservative measures, injection, anti-inflammatories, rehab. She is to proceed with left total knee arthroplasty. Description of Procedure Risks benefits and alternatives of surgery including but not limited to infection, DVT, pain, stiffness, need for surgery, damage to blood vessels, damage to nerves or risks of anesthesia were discussed with the patient and they wished to proceed. The patient was identified and the laterality was confirmed and marked. They received a preoperative antibiotic as well as a spinal anesthetic and an abductor canal block. A well-padded tourniquet was applied and then the limb was prepped and draped in standard manner with ChloraPrep. The limb was exsanguinated and the tourniquet was inflated. I made a standard anterior incision. I sharply incised the skin then utilized Bovie electrocautery as well as the aqua mantis to achieve hemostasis. I made a medial parapatellar arthrotomy and mobilized the patella laterally. I then excised the anterior horns of the medial and lateral meniscus as well as the infrapatellar fat pad. I elevated a portion of the MCL off of the tibia. I drilled centrally into the femoral canal and then placed a alignment rosalind into the femur. I then placed a 5 valgus guide into position. I made my distal cut. I then pinned into place the femoral sizing guide and determined my femoral size. Adjustments were made as necessary to ensure proper rotation and that we would not notch the femur. I then pinned into place the 5 in 1 femoral cutting guide. I made my anterior, posterior and chamfer cuts. I then excised the cruciates and the remaining portions of the menisci. I then pinned into place a extra medullary tibial cutting guide. I then made my tibial resection. I then pinned into place the tibial plate a utilizing alignment rosalind to confirm rotation. I then cut for the post. Utilizing a lamina ems manager and I then removed posterior osteophytes off the femur. I then placed a trial femur into position and cut for the trochlear component. I then sequentially trialed to size the polyethylene until there was good soft tissue balancing and range of motion. I then prepared the patella with a freehand cut utilizing sagittal saw. I sized and drilled for the patella. There was good tracking to the patella no lateral release was needed. All the trial components were removed. The deep tissues were anesthetized with an ortho mix solution. Then with Simplex HV with gentamicin cement, I cemented my definitive components. Definitive components, De Leon and Nephew Leonel 2: Femur 4 Tibia 2 Poly 9 Patella 29 oval A betadine soak was performed. A deep drain was placed. The arthrotomy was closed with interrupted #1 Vicryl suture subcutaneous tissue was closed with interrupted 2-0 Vicryl suture. The skin was closed with with rodger. A Acticoat and EAN wound VAC was placed. Sterile dressings were applied. All needle and sponge counts were correct at the end of the procedure patient was transferred to the PACU in stable condition without apparent complication. The PA-C was necessary for assistance with procedure for assistance in position ing, prepping, draping, retraction and closure. I attest to the content of the Intraoperative Record and any orders documented therein. Any exceptions are noted below.
--- NOTE | 2019-11-16 16:21 | Anesthesiology Progress Note ---
Date of Service November 16, 2019 Anesthesia Post Procedure Vital Signs Vital Signs: Temp Pulse Pulse Resp BP Pulse Ox 11/16/19 15:55 36.9 C 65 18 119/57 L 93 11/16/19 15:45 65 18 113/61 94 11/16/19 15:38 37.0 C 66 18 119/71 96 11/16/19 12:20 36.6 C 59 L 18 137/65 95 Transfer of Care Handoff Completed per policy Notes Mental Status: alert / awake / arousable and participated in evaluation Nausea / Vomiting: adequately controlled Pain: adequately controlled Airway Patency, RR, SpO2: stable & adequate BP & HR: stable & adequate Hydration State: stable & adequate Neuraxial Anesthesia: was administered and sensory block is resolving Anesthetic Complications: no major complications apparent and Pt Satisfied with anesthetic care
[2019-11-16] MEDS ORDERED: bisacodyL 10 MG SUPP PR PRN (16:25)
[2019-11-16] MEDS ORDERED: NALOXONE HCL 0.4 MG/1 ML VIAL/CARP IV PRN (16:25)
[2019-11-16] MEDS ORDERED: HYDROmorphone INJ 0.5 MG/0.5 ML SYR IV PRN (16:25)
[2019-11-16] MEDS ORDERED: OXYCODONE HCL IR 5 MG TAB (IMMEDIATE RELEASE) PO PRN (16:25)
[2019-11-16] MEDS ORDERED: MAGNESIUM HYDROXIDE SUSP 30 ML UDC PO PRN (16:25)
[2019-11-16] MEDS ORDERED: SODIUM CHLORIDE 0.9% 1000ML 1,000 ML IV SCH (16:25)
[2019-11-16] MEDS ORDERED: PNEUMOCOCCAL POLYSACCHARIDES 25 MCG/0.5 ML VIAL/SYR IM ONE (16:38)
[2019-11-16] MEDS ORDERED: PNEUMOCOCCAL ADMINISTRATION CHARGE ONE (16:38)
--- NOTE | 2019-11-16 17:19 | XRay Report ---
LEFT KNEE 2 VIEWS History: Left total knee arthroplasty. Degenerative arthritis. Postop. FINDINGS: The patient is status post a left total knee arthroplasty. The hardware is intact. No fract ure or dislocation. Skin rodger are in place. IMPRESSION: Left total knee arthroplasty. No evidence for hardware complication. ACT 112: Negative or not required by law. Electronically signed by: Tonny Culver M.D. 11/16/2019 5:18 PM
[2019-11-16] MEDS ORDERED: MICONAZOLE NITRATE POWDER 43 GM EXT PRN (20:04)
[2019-11-16] MEDS ORDERED: SENNA 8.6 MG TAB PO SCH (21:00)
[2019-11-16] MEDS ORDERED: ATORVASTATIN 40 MG TAB PO SCH (21:00)
[2019-11-16] MEDS: ACETAMINOPHEN 500 MG TAB PO SCH (21:22)
[2019-11-16] MEDS: CEFAZOLIN 1000MG 1,000 MG/7.5 ML SYR IV SCH (21:23)
[2019-11-16] MEDS: DOCUSATE SODIUM 100 MG CAP PO SCH (21:23)
[2019-11-17] MEDS: CEFAZOLIN 1000MG 1,000 MG/7.5 ML SYR IV SCH (05:55)
[2019-11-17] MEDS: ACETAMINOPHEN 500 MG TAB PO SCH (06:06)
[2019-11-17 06:42] LABS: Hematocrit (blood only) 30.2 % (37-47); Hemoglobin 10.7 g/dL (12.0-16.0); Mean Corpuscular Hgb Conc 35.4 g/dL (32-36); Mean Corpuscular Volume 90.4 fL (80-100); Mean Platelet Volume 9.5 fL (7.4-10.4); Platelet Count 281 K/uL (130-400); RDW Coefficient of Variation 12.6 % (11.5-14.5); RDW Standard Deviation 41.7 fL (36.4-46.3); Red Blood Count 3.34 M/uL (4.2-5.4); White Blood Count 27.11 K/uL (4.8-10.8)
[2019-11-17 07:15] LABS: BUN Creatinine Ratio 21.1 (10-20); Calcium 8.5 mg/dl (8.5-10.1); Est GFR (African American) 95.8; Est GFR (Non-African American) 82.7; Potassium 4.1 mmol/L (3.5-5.1)
--- NOTE | 2019-11-17 07:48 | Orthopedic Progress Note ---
Date of Service November 17, 2019 Assessment & Plan (1) Primary osteoarthritis of left knee: POD#1 left TKA -Pain management -PT/OT -DVT prophylaxis-resume home aspirin and plavix, SCDs, TEDs -AM labs-hemoglobin 10.7, ABL likely due to surgical loss vs dilutional effect -D/C planning-home with HHPT later today after PT. Admission and Anticipated Discharge Date Admission Date: November 16, 2019 Subjective Patient is doing well this morning, minimal amount of pain. She denies chest pain, sob, dizziness, n/v/d. Review of Systems Review of Systems: All systems reviewed & are unremarkable except as noted in HPI & below Physical Exam Physical Exam: Left knee dressing is c/d/i, no calf tenderness. Jerilyn in place. Good dorsiflexion. Toes are mobile. Distally n/v status and sensation intact. Constitutional: well developed and well nourished; no acute distress Results & Data ([facility]) Vital Signs (Past 12 Hours) Vital Signs Temp Pulse Resp BP Pulse Ox 11/17/19 07:25 36.8 C 56 L 16 118/66 96 11/17/19 03:01 36.7 C 56 L 16 94/59 L 91 11/16/19 23:24 36.7 C 60 16 107/63 93
--- NOTE | 2019-11-17 08:01 | Anesthesiology Progress Note ---
Date of Service November 17, 2019 Anesthesia Post Procedure Vital Signs Vital Signs: Temp Pulse Pulse Resp BP Pulse Ox 11/17/19 07:25 36.8 C 56 L 16 118/66 96 11/17/19 03:01 36.7 C 56 L 16 94/59 L 91 11/16/19 23:24 36.7 C 60 16 107/63 93 11/16/19 19:23 36.7 C 18 104/65 99 11/16/19 18:18 36.6 C 64 18 118/74 95 11/16/19 17:15 36.6 C 61 18 120/73 92 11/16/19 16:46 36.9 C 60 18 122/69 93 11/16/19 16:15 64 16 115/68 92 11/16/19 15:55 36.9 C 65 18 119/57 L 93 11/16/19 15:45 65 18 113/61 94 11/16/19 15:38 37.0 C 66 18 119/71 96 11/16/19 12:20 36.6 C 59 L 18 137/65 95 Pain Intensity Left Knee: Pain Intensity: 0 Notes Mental Status: alert / awake / arousable and participated in evaluation Patient Amnestic to Procedure: Yes Nausea / Vomiting: adequately controlled Pain: adequately controlled Airway Patency, RR, SpO2: stable & adequate BP & HR: stable & adequate Hydration State: stable & adequate Neuraxial Anesthesia: was administered and sensory block resolved Anesthetic Complications: no major complications apparent and Pt Satisfied with anesthetic care
[2019-11-17] MEDS ORDERED: MAGNESIUM OXIDE 400 MG TAB PO SCH (09:00)
[2019-11-17] MEDS ORDERED: ASPIRIN 81 MG ECTAB PO SCH (09:00)
[2019-11-17] MEDS ORDERED: CHOLECALCIFEROL (VITAMIN D) 400 UNITS TABLET PO SCH (09:00)
[2019-11-17] MEDS ORDERED: lisinopriL 20 MG TAB PO SCH (09:00)
[2019-11-17] MEDS ORDERED: GLUCOSAMINE SULFATE 1000 MG PO SCH (09:00)
[2019-11-17] MEDS ORDERED: CYANOCOBALAMIN 500 MCG TABLET (VITAMIN B-12) PO SCH (09:00)
[2019-11-17] MEDS ORDERED: ASCORBIC ACID 500 MG TAB PO SCH (09:00)
[2019-11-17] MEDS ORDERED: MULTIVITAMIN TAB PO SCH ×2 (09:00)
[2019-11-17] MEDS ORDERED: CITALOPRAM 20 MG TAB PO SCH (09:00)
[2019-11-17] MEDS ORDERED: METOPROLOL SUCC 25MG EXT REL TAB PO SCH (09:00)
[2019-11-17] MEDS ORDERED: PANTOprazole 40 MG TAB PO SCH (09:00)
[2019-11-17] MEDS ORDERED: AMLODIPINE BESYLATE 5 MG TAB PO SCH (09:00)
[2019-11-17] MEDS ORDERED: CLOPIDOGREL BISULFATE 75 MG TAB PO SCH (09:00)
[2019-11-17] MEDS ORDERED: CALCIUM 600MG + VIT D 400 IU TAB PO SCH (09:00)
[2019-11-17] MEDS: DOCUSATE SODIUM 100 MG CAP PO SCH (09:04)
--- NOTE | 2019-11-17 22:00 | Discharge Summary ---
Date of Service November 17, 2019 Admission HPI Per Admitting Provider 69 year old female with PMHx significant for HTN, high cholesterol, CAD with stent, anxiety presents with long standing history of left knee pain. Pain affects her ability to carry out normal daily activity and leisure activities. She has failed conservative measures including cortisone injection, therapy, antiinflammatories. Unable to do visco injections due to cost. She would like to proceed with surgical intervention. She has had worsening arthritic change medially. She has failed conservative management Patient denies headaches, sweats, fevers, chills, double vision, blurred vision, cough, sore throat, dy sphagia, chest pain, sob, wheezing, n/v/d/c, numbness, tingling, fatigue, urinary symptoms, mood disorders. ROS positive for left knee pain and stiffness. Admission Exam Per Admitting Provider Constitutional: well developed and well nourished; no acute distress Eyes: PERRL, conjunctivae normal, anicteric sclerae ENMT: external ear and nose normal, oropharynx normal Neck: trachea midline, no thyromegaly Respiratory: normal respiratory effort, lungs clear to auscultation Cardiovascular: RRR, no murmur, no edema Musculoskeletal: Left knee: Mild effusion with medial joint line tenderness. Positive Rohini's. Stable to valgus and varus stress tests. ROM 0-130 degrees. Skin: no rashes, warm and dry Neurologic: patellar DTR's 2+ bilat, sensation intact Psychiatric: A+Ox3, euthymic affect Principal Diagnosis Left knee osteoarthritis, Leukocytosis Discharge Exam Constitutional well developed, well nourished and + obese; no acute distress Eyes PERRL, conjunctivae normal, anicteric sclerae ENMT external ear and nose normal, oropharynx normal Mouth: no TMJ abnormality, no TMJ clicking and oral opening not small Mallampati Class: II Neck trachea midline, no thyromegaly normal visual inspection and + short neck; neck extension not limited Respiratory normal respiratory effort, lungs clear to auscultation normal respiratory effort; no respiratory distress Auscultation: lungs clear to auscultation bilaterally; no wheezes Cardiovascular RRR, no murmur, no edema Rate/Rhythm: regular rate and regular rhythm Heart Sounds: no murmur Vessels: no carotid bruit Musculoskeletal Spine: normal cervical ROM and no pain with cervical ROM Skin no rashes, warm and dry Neurologic patellar DTR's 2+ bilat, sensation intact moves all extremities Psychiatric A+Ox3, euthymic affect Orientation: alert and oriented x 3 Discharge Data Allergies Allergy/AdvReac Type Severity Reaction Status Date / Time No Known Allergies Allergy Verified 11/10/19 10:48 Consultations 11/16/19 16:25 Consult Case Management - Discharge Planning Routine Procedures Performed Operation Date: 11/16/19 14:10 Actual Procedures p Left Total Knee Arthroplasty(Left) - Jung Cardona MD Ordered Studies 11/16/19 05:00 US - OR guided needle placemen Routine Hospital Course (1) Primary osteoarthritis of left knee: Patient presented for same day admission following left total knee arthroplasty on 11/16/19. She tolerated procedure well. The Patient had an uneventful hospital course. Post-operatively, her activity was progressed and well tolerated. They participated in PT with ambulation distance of 375 feet. ROM of operative knee reached 91 degrees. Labs remained stable- lowest hemoglobin recorded: 10.4. [place] [address] white count, however does follow with heme/onc for intermittent [place] [address] last month. Pain controlled on oral medications. Please refer to daily progress notes and PT notes for complete details. After exam on 11/17/19, patient was felt to be stable for discharge home with home health PT. Patient will f/u in the office in about 2 weeks for further evaluation including x-rays and incision check, sooner if having any issues or concerns. Lab Results 11/03/19 11/03/19 11/03/19 Range/Units 10:46 10:46 10:46 WBC (4.8-10.8) K/uL RBC (4.2-5.4) M/uL Hgb (12.0-16.0) g/dL Hct (37-47) % MCV (80-100) fL MCH (25-34) pg MCHC (32-36) g/dL RDW Std Deviation (36.4-46.3) fL RDW Coeff of Maribeth (11.5-14.5) % Plt Count (130-400) K/uL MPV (7.4-10.4) fL PT 10.4 (9.0-12.0) Seconds INR 1.0 (0.9-1.1) APTT 25.8 (21.0-31.0) Seconds PTT Ratio 1.0 Sodium (136-145) mmol/L Potassium (3.5-5.1) mmol/L Chloride (98-107) mmol/L Carbon Dioxide (21-32) mmol/L Anion Gap (3-11) BUN (7-18) mg/dl Creatinine (0.6-1.2) mg/dl Est Cr Clr Drug Dosing ml/min Est GFR ( Amer) Est GFR (Non-Af Amer) BUN/Creatinine Ratio (10-20) Glucose (70-99) mg/dl Estimat Average Glucose 123 mg/dl Hemoglobin A1c 5.9 H (4.5-5.6) % Calcium (8.5-10.1) mg/dl Urine Color Urine Appearance (Clear) Urine pH (4.5-7.5) Ur Specific [place] (1.000-1.030) Urine Protein (Negative) Urine Glucose (UA) (Negative) Urine Ketones (Negative) Urine Blood (Negative) Urine Nitrite (Negative) Urine Bilirubin (Negative) Urine Urobilinogen (Negative) Ur Leukocyte Esterase (Negative) Urine RBC (0-4) /hpf Urine WBC (0-5) /hpf Ur Epithelial Cells (0-5) /lpf Urine Bacteria (Negative) Hepatitis C Ab Screen (Neg) Blood Type O Positive Antibody Screen NEGATIVE 11/03/19 11/17/19 11/17/19 Range/Units 10:46 06:30 06:30 WBC 27.11 H (4.8-10.8) K/uL RBC 3.34 L (4.2-5.4) M/uL Hgb 10.7 L (12.0-16.0) g/dL Hct 30.2 L (37-47) % MCV 90.4 (80-100) fL MCH 32.0 (25-34) pg MCHC 35.4 (32-36) g/dL RDW Std Deviation 41.7 (36.4-46.3) fL RDW Coeff of Maribeth 12.6 (11.5-14.5) % Plt Count 281 (130-400) K/uL MPV 9.5 (7.4-10.4) fL PT (9.0-12.0) Seconds INR (0.9-1.1) APTT (21.0-31.0) Seconds PTT Ratio Sodium 139 (136-145) mmol/L Potassium 4.1 (3.5-5.1) mmol/L Chloride 107 (98-107) mmol/L Carbon Dioxide 25 (21-32) mmol/L Anion Gap 6.0 (3-11) BUN 16 (7-18) mg/dl Creatinine 0.74 (0.6-1.2) mg/dl Est Cr Clr Drug Dosing 64.0 ml/min Est GFR ( Amer) 95.8 Est GFR (Non-Af Amer) 82.7 BUN/Creatinine Ratio 21.1 H (10-20) Glucose 130 H (70-99) mg/dl Estimat Average Glucose mg/dl Hemoglobin A1c (4.5-5.6) % Calcium 8.5 (8.5-10.1) mg/dl Urine Color Yellow Urine Appearance Clear (Clear) Urine pH 5.5 (4.5-7.5) Ur Specific [place] 1.009 (1.000-1.030) Urine Protein Negative (Negative) Urine Glucose (UA) Negative (Negative) Urine Ketones Negative (Negative) Urine Blood Negative (Negative) Urine Nitrite Negative (Negative) Urine Bilirubin Negative (Negative) Urine Urobilinogen Negative (Negative) Ur Leukocyte Esterase Trace H (Negative) Urine RBC 0-4 (0-4) /hpf Urine WBC 0-5 (0-5) /hpf Ur Epithelial Cells 0-5 (0-5) /lpf Urine Bacteria Negative (Negative) Hepatitis C Ab Screen (Neg) Blood Type Antibody Screen 11/17/19 Range/Units 06:30 WBC (4.8-10.8) K/uL RBC (4.2-5.4) M/uL Hgb (12.0-16.0) g/dL Hct (37-47) % MCV (80-100) fL MCH (25-34) pg MCHC (32-36) g/dL RDW Std Deviation (36.4-46.3) fL RDW Coeff of Maribeth (11.5-14.5) % Plt Count (130-400) K/uL MPV (7.4-10.4) fL PT (9.0-12.0) Seconds INR (0.9-1.1) APTT (21.0-31.0) Seconds PTT Ratio Sodium (136-145) mmol/L Potassium (3.5-5.1) mmol/L Chloride (98-107) mmol/L Carbon Dioxide (21-32) mmol/L Anion Gap (3-11) BUN (7-18) mg/dl Creatinine (0.6-1.2) mg/dl Est Cr Clr Drug Dosing ml/min Est GFR ( Amer) Est GFR (Non-Af Amer) BUN/Creatinine Ratio (10-20) Glucose (70-99) mg/dl Estimat Average Glucose mg/dl Hemoglobin A1c (4.5-5.6) % Calcium (8.5-10.1) mg/dl Urine Color Urine Appearance (Clear) Urine pH (4.5-7.5) Ur Specific [place] (1.000-1.030) Urine Protein (Negative) Urine Glucose (UA) (Negative) Urine Ketones (Negative) Urine Blood (Negative) Urine Nitrite (Negative) Urine Bilirubin (Negative) Urine Urobilinogen (Negative) Ur Leukocyte Esterase (Negative) Urine RBC (0-4) /hpf Urine WBC (0-5) /hpf Ur Epithelial Cells (0-5) /lpf Urine Bacteria (Negative) Hepatitis C Ab Screen Neg (Neg) Blood Type Antibody Screen POD#1 left TKA -Pain management -PT/OT -DVT prophylaxis-resume home aspirin and plavix, SCDs, TEDs -AM labs-hemoglobin 10.7, ABL likely due to surgical loss vs dilutional effect -D/C planning-home with HHPT later today after PT. Total Time Total Time Spent Total Time Spent (In Minutes): 20 Discharge Plan Discharge Items Patient Disposition: Home - Home Health Services Reason For Visit: LEFT KNEE OSTEOARTHRITIS Discharge Diagnosis: Left knee osteoarthritis Activity: Per Instructions section Non-emergency contact: Surgeon Call non-emergency contact if: you have any medication questions, your symptoms worsen, your pain is not controlled, your pain is worsening, your pain is unusual for you, your pain is concerning for you, you have a fever, your temperature is above 101, your wound has increased drainage and your wound pain has increased Follow-up/Referrals: Donny Leal MD [Primary Care Provider] - Diet: Regular Addtl Attending Provider Instructions: ACTIVITY RECOMMENDATIONS: SELF CARE INSTRUCTIONS AFTER TOTAL KNEE REPLACEMENT A. You may need to continue a physical therapy program after discharge from the hospital. There are several options available to you. Your doctor will assist you in selecting the best one for you. 1. An out-patient facility 2 to 3 times a week for therapy or home therapy. 2. Continue working on all exercises taught to you in the hospital. Your goals should be to increase bending of your knee to 90 degrees and beyond and to fully straighten your knee. B. You may progress at your own pace from walking with a walker or crutches to a cane; then to no assistive devices. C. Make walking a part of your daily routine. Be up as much as comfortable with rest periods throughout the day. Rest with leg elevation is very important. Use the ice wrap frequently for the first 3-4 weeks. D. There are no restrictions on activities. You may ride in a car, shop, participate in twist tester and all social activities. E. Wear the long elastic stockings (AN hose) 20 hours a day for 2 weeks after surgery. They can be removed several times a day for laundering and for a bath. F. You may shower, no tub baths until cleared by your doctor. SPECIAL CARE INSTRUCTIONS: VERY IMPORTANT TO READ AND REVIEW A. There are a few signs you need to watch for after you are home. Call [facility] if you notice any of the followin. Increased severe knee pain. Some pain is expected especially when you exercise. 2. Increased swelling in your leg or knee; pain or swelling of the calf muscle in either lower leg. 3. Any fluid drainage from the incision. 4. Shortness of breath or chest pain. B. Please call [facility] at if you have any concerns or questions about your operation or recovery. The doctor or his nurse will return your call promptly. C. You must take antibiotics before dental work, bladder, bowel or other surgery. Your doctor will provide you with a permanent care to carry describing this precaution. IMPORTANT: * REMEMBER TO TAKE ASPIRIN, 81 MG, TWICE DAILY FOR 4 WEEKS UNLESS OTHERWISE DIRECTED. THIS IS YOUR BLOOD THINNER. * HIGH RISK PATIENTS MAY BE PRESCRIBED A STRONGER BLOOD THINNER. THIS WILL BE PROVIDED AT DISCHARGE. * CALL IF INCREASED PAIN, REDNESS, DRAINAGE OR FEVER GREATER THAT 101. * WEAR AN HOSE 20 HOURS PER DAY FOR 2 WEEKS. This is a large suction dressing covering your incision. This will help pull any excess drainage from the wound and allow your incision to heal properly. You may shower with this if you can keep the unit outside of the shower. If any bleeding or leakage is noted please call your doctor's office. This will remain on your incision for 7 days and then should be removed. This can be done yourself or by the home nursing staff if applicable. The entire unit is disposable once removed. Once removed, keep incision clean and dry. If redness or drainage is noted, please call your surgeon. IF INCISION IS LEAKING THROUGH DRESSING, CALL THE OFFICE . FOLLOW UP VISIT: If appointment is not already scheduled: Please call [facility] to make a follow-up appointment for 2 weeks after your surgery at . Stand-Alone Forms: My Can'tWait, Opioid Pain Management, Smoking Cessation Medications and DC Order Prescriptions: New acetaminophen 500 mg Tablet 1,000 mg PO Q8 Qty: 60 RF: 0 oxycodone 5 mg Tablet 5 - 10 mg PO .Q4H-6H MDD 6 PRN (Reason: pain) Qty: 30 RF: 0 Continued clopidogrel 75 mg tablet 75 mg PO QAM Qty: 90 RF: 0 nystatin 100,000 unit/gram cream 1 appln TOP BID Qty: 15 RF: 0 atorvastatin 80 mg tablet 80 mg PO QPM RF: 0 ascorbic acid (vitamin C) [Vitamin C] 500 mg Tablet 500 mg PO QAM RF: 0 Caltrate 600 plus D 600 mg (1,500 mg)-800 unit Tablet,Chewable 1 tab PO QAM RF: 0 multivitamin Tablet 1 tab PO QAM RF: 0 aspirin 81 mg Tablet,Delayed Release (Dr/Ec) 81 mg PO QAM RF: 0 cyanocobalamin (vitamin B-12) [Vitamin B-12] 500 mcg Tablet 500 mcg PO QAM RF: 0 cholecalciferol (vitamin D3) [Vitamin D3] 400 unit Capsule 400 unit PO QAM RF: 0 glucosamine sulfate 1,000 mg Capsule 1,000 mg PO QAM RF: 0 magnesium oxide 400 mg magnesium Tablet 400 mg PO QAM RF: 0 Hemp 1 cap PO QAM RF: 0 lisinopril 20 mg tablet 20 mg PO QAM RF: 0 amlodipine 5 mg tablet 5 mg PO QAM RF: 0 pantoprazole 20 mg tablet,delayed release (DR/EC) 20 mg PO QAM RF: 0 citalopram [Celexa] 20 mg tablet 20 mg PO QAM RF: 0 metoprolol succinate 25 mg tablet extended release 24 hr 25 mg PO QAM RF: 0 Discharge Orders: Discharge Order (Routine); Ordered 11/17/19 Ordered By: Lambert Paez/Other Patient Handouts: Surgery Prevent DVT After, Knee Replace Home After, Knee Replace First Month Admission Data Admit Date/Time: 11/16/19 15:43 Attending Provider: Jung Cardona Admit Provider: Jung Cardona Primary Care Provider: Donny Leal V. Other Providers: Marvin East Other Interventions: Discharge Summary Assessment (RN) Last Done: 11/17/19 11:14 DC Date/Time DO NOT enter until pt leaves facility: 11/17/19 12:34
== END 2019-11-17 12:34 | disposition home health service (06) | DRG 470 ==
LOC: ASU 11:28 → 3E 15:43